=== PATIENT | female | born 1955 | race Caucasian/White ===

== ENCOUNTER 2017-04-12 13:29 | Inpatient (IN) ==
--- NOTE | 2017-04-07 16:32 | Discharge Summary ---
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: Chronic Qualifiers: Encounter type: subsequent encounter Qualified Code(s): T84.038D - Mechanical loosening of other internal prosthetic joint, subsequent encounter; Z96.619 - Presence of unspecified artificial shoulder joint; Z96.619 - Presence of unspecified artificial shoulder joint (3) Seizure disorder Priority: Secondary Status: Chronic (4) HTN (hypertension) Priority: Secondary Status: Chronic Qualifiers: Hypertension type: unspecified Qualified Code(s): I10 - Essential (primary ) hypertension (5) Tobacco dependence Priority: Secondary Status: Chronic (6) GERD (gastroesophageal reflux disease) Priority: Secondary Status: Chronic Qualifiers: Esophagitis presence: esophagitis presence not specified Qualified Code(s) : K21.9 - Gastro-esophageal reflux disease without esophagitis (7) Osteoporosis Priority: Secondary Status: Chronic Qualifiers: Osteoporosis type: unspecified Presence of current pathological fracture: unspecified Qualified Code(s): M81.0 - Age-related osteoporosis without current pathological fracture (8) PVD (peripheral vascular disease) Priority: Secondary Status: Chronic (9) Status post total shoulder replacement Priority: Primary Status: Acute Qualifiers: Laterality: right Qualified Code(s): Z96.611 - Presence of right artificial shoulder joint - Discharge Medications Home Medications: Alendronate Sodium 70 mg PO TH 07/11/16 [History] Gabapentin [Neurontin] 1,200 mg PO HS 07/11/16 [History] Gabapentin [Neurontin] 600 mg PO 0800,1200 07/11/16 [History] Lisinopril [Zestril] 20 mg PO DAILY 07/11/16 [History] Phenytoin ER [Dilantin ER] 200 mg PO BID 07/11/16 [History] Tizanidine HCl 4 mg PO TID PRN 07/11/16 [History] Dicyclomine [Bentyl] 20 mg PO QID PRN 12/27/16 [History] Omeprazole [PriLOSEC] 40 mg PO DAILY 12/27/16 [History] Duloxetine HCl [Cymbalta] 60 mg PO DAILY 04/12/17 [History] OxyCODONE/APAP 5/325 [Percocet 5/325 MG] 1 each PO TID PRN 7 Days #20 tablet 11/19 [Rx] Allergies/Adverse Reactions: 3 Allergy/AdvReac Type Severity Reaction Status Date / Time sulfamethoxazole Allergy Swelling Verified 04/12/17 13:51 [From Bactrim] of Lip/Tongue/Throat trimethoprim [From Bactrim] Allergy Swelling Verified 04/12/17 13:51 of Lip/Tongue/Throat Primary care physician: Nitesh Abbott CNP - Patient Status Disposition: Home Health Service Condition: Good - Discharge Instructions Instructions: Calcium and Osteoporosis (DC), Peripheral Vascular Disorders (DC) , Chronic Hypertension (DC) Follow Up With: Christiana Smith PAC [Physician Keyboard Specialist] - 04/18/17 9:00 am (04/26/17 @ 0815 2nd followup appt) Richy Saleem DO [Partnered Physician] - 05/31/17 9:20 am Jeffy Quiros MD [Partnered Physician] - 05/08/17 5:40 pm Jeanne Thakur PhD [Partnered Physician] - 04/16/17 9:00 am Additional Instructions: Discharge Instructions: Total Shoulder Please call [facility] ([phone]), your Primary Care Physician, or report to the Emergency Room if you have any of the following symptoms: Nausea, vomiting, fever greater that 101.5, swelling, chest pain, shortness of breath, increased pain/redness/drainage/odor for your incision site, numbness/ tingling, or any other concerning symptoms. ACTIVITY: Always keep your arm in the sling. Do not raise your arm away from your body. Do not use your arm to help with getting in or out of bed. No weight bearing permitted. Only perform those exercises given to you by your therapist. MEDICATIONS: Upon discharge resume your home medications. Take all the medications as prescribed. Take a stool softener if taking narcotic pain medications. Stool softeners are only effective if you drink enough fluids. Drink 6-8 glass of water or fluids a day, unless this is not allowed for another health problem. Despite using stool softeners, if you haven't had a bowel movement in 3 days, please switch to a gentle laxative. Gentle laxatives are sold over the counter. You should have a bowel movement within 24 hours, if not call the office. You will be discharged from the hospital with a prescription for pain medication. You are encouraged to decrease the use of narcotic pain medication as tolerated. Should you require a refill, please call the office. [facility] prescribes narcotic pain medication for only 4-6 weeks after surgery. If you require pain medication beyond this time period, you may be referred to your Primary Care Physician or to the Pain Clinic for further evaluation. Plan ahead for refills on pain medication as many narcotics either need to be picked up at the office or mailed. It is best to call 48-72 hours in advance of needing a prescription refill so you don't run out of medication. To help control the post-operative pain, you may take NSAIDs (Aleve,Advil, Motrin, Ibuprofen, Naprosyn) or Tylenol as prescribed on the bottle in addition to the pain medication. WOUND CARE: Leave the dressing on for 7-10 days. You may change the dressing if it becomes saturated greater than 50%. Do not get the dressing wet at anytime. Wash your hands with antibacterial soap, rinse and dry prior to any wound care. If you have domingo the visiting nurse or rehab facility can remove the stapes 10-14 days after surgery and place steri-strips across the wound. Leave the steri-strips in place until they fall off on their own. You may let water from the shower run on top of the steri-strips. If you do not have a visiting nurse or rehab facility, you will need to return to the office at 10-14 days for the domingo to be removed. If you have itching or redness around the dressing call the office. FOLLOW-UP: Please follow up with your surgeon in the orthopedic clinic, as scheduled - Hospital Course Hospital course: Ms. Lilly is a 61 year old female - Time Spent with Patient Total time spent providing and/or coordinating discharge services: <Christiana Smith E - Last Filed: 04/19/17 17:53> Date of Encounter: 04/19/17 Time of Encounter: 17:51 - Discharge Diagnosis (1) Status post total shoulder replacement Priority: Primary Status: Acute Qualifiers: Laterality: right Qualified Code(s): Z96.611 - Presence of right artificial shoulder joint (2) Loosening of shoulder joint prosthesis Priority: Primary Status: Chronic Qualifiers: Encounter type: subsequent encounter Qualified Code(s): T84.038D - Mechanical loosening of other internal prosthetic joint, subsequent encounter; Z96.619 - Presence of unspecified artificial shoulder joint; Z96.619 - Presence of unspecified artificial shoulder joint (3) Seizure disorder Priority: Secondary Status: Chronic (4) HTN (hypertension) Priority: Secondary Status: Chronic Qualifiers: Hypertension type: unspecified Qualified Code(s): I10 - Essential (primary ) hypertension (5) Tobacco dependence Priority: Secondary Status: Chronic (6) GERD (gastroesophageal reflux disease) Priority: Secondary Status: Chronic Qualifiers: Esophagitis presence: esophagitis presence not specified Qualified Code(s) : K21.9 - Gastro-esophageal reflux disease without esophagitis (7) Osteoporosis Priority: Secondary Status: Chronic Qualifiers: Osteoporosis type: unspecified Presence of current pathological fracture: unspecified Qualified Code(s): M81.0 - Age-related osteoporosis without current pathological fracture (8) PVD (peripheral vascular disease) Priority: Secondary Status: Chronic Date of admission: 04/12/17 Primary care physician: Nitesh Abbott CNP Anticipated date of discharge: 04/13/17 (Patient's surgery moved from 04/08 to 04/12) - Patient Status Functional capacity at discharge: independent ambulation Overall status at discharge: patient is progressing back to baseline - Diet and Activity Activity: as per physical therapy Diet: advance to your usual diet - Hospital Course Hospital course: Ms. Lilly is a 61 year old female - Time Spent with Patient Total time spent providing and/or coordinating discharge services: - VTE Documentation of Mechanical Device: Venous foot pump, device
--- NOTE | 2017-04-07 20:37 | Physician Discharge Referral ---
Home Health/Hosp Referral Info Transfer to: Home Health Attending Provider: Dr Jeffy Quiros - Diagnosis (1) Status post total shoulder replacement Priority: Primary Status: Acute (2) Loosening of shoulder joint prosthesis Priority: Primary Status: Chronic (3) Seizure disorder Priority: Secondary Status: Chronic (4) HTN (hypertension) Priority: Secondary Status: Chronic (5) Tobacco dependence Priority: Secondary Status: Chronic (6) GERD (gastroesophageal reflux disease) Priority: Secondary Status: Chronic (7) Osteoporosis Priority: Secondary Status: Chronic (8) PVD (peripheral vascular disease) Priority: Secondary Status: Chronic - Respiratory Orders Smoking Cessation: Smoking cessation has been advised. For more information, call the [place] Tobacco Quit Line at 7-405-ETII-NOW. - Dressing/Wound Care Site: right shoulder Type of Dressing/Treatments w/Frequency: Opsite placed. Keep dressing intact until first follow up appointment. If > 50% saturated, notify office, remove dressing and place appropriate dressing back in place. Leave Delmi and Zipline intact. Opsite dressing is water resistant, not water-proof. OK to shower, but do not get dressing wet. - Diet/Nutrition Diet/Nutrition Orders: Regular - Activity Activity Orders: Up ad kosta, Ambulate, Chair Activity: List: PT/OT. NWB to affected upper extremity. Follow Shoulder Precautions x 6 weeks. Stay in brace during activity and at night. Remove brace during exercises. ICE and elevate extremity frequently throughout the day. - Services Needed Following services are medically necessary services: Nursing, Home Health Aide, Physical Therapy, Occupational Therapy - Transfer Medications Prescriptions: OxyCODONE Immed Rel [Roxicodone 5 MG] 5 mg PO BID PRN 7 Days #14 tablet PRN Reason: Breakthrough Pain Home Medications: Alendronate Sodium 70 mg PO TH 07/11/16 [History] Gabapentin [Neurontin] 1,200 mg PO HS 07/11/16 [History] Gabapentin [Neurontin] 600 mg PO 0800,1200 07/11/16 [History] Lisinopril [Zestril] 20 mg PO DAILY 07/11/16 [History] OxyCODONE/APAP 5/325 [Percocet 5/325 MG] 1 each PO TID PRN 07/11/16 [History] Phenytoin ER [Dilantin ER] 200 mg PO BID 07/11/16 [History] Tizanidine HCl 4 mg PO TID PRN 07/11/16 [History] Dicyclomine [Bentyl] 20 mg PO QID PRN 12/27/16 [History] Omeprazole [PriLOSEC] 40 mg PO DAILY 12/27/16 [History] OxyCODONE/APAP 10325 [Percocet 10/325 MG] 1 each PO Q6HR PRN #24 tablet [Rx] Oxybutynin Chloride [Ditropan Xl] 10 mg PO DAILY 12/27/16 [History] OxyCODONE Immed Rel [Roxicodone 5 MG] 5 mg PO BID PRN 7 Days #14 tablet [Rx] Allergies/Adverse Reactions: 3 Allergy/AdvReac Type Severity Reaction Status Date / Time sulfamethoxazole Allergy Swelling Verified 12/27/16 11:09 [From Bactrim] of Lip/Tongue/Throat trimethoprim [From Bactrim] Allergy Swelling Verified 12/27/16 11:09 of Lip/Tongue/Throat Certification: Further, I certify that my clinical findings support that this patient is homebound (i.e. absences from home require considerable and taxing effort and are for medical reasons or episcopalian services or infrequently or short duration when for other reasons) because: Homebound Reason: Post-surgery restriction and or conditions limit ability to leave home Attestation: My signature below is to certify that this patient is under my care and that I, or nurse practitioner, or a physician medical staff assistant working with me, has a face-to- face encounter with this patient.
[~2017-04-12 13:29] MED LIST: *HR* Enoxaparin 30 MG/0.3 ML SYRINGE SQ SCH
[2017-04-12] MEDS ORDERED: Famotidine 20 MG/2 ML VIAL IVP ONE (13:49)
[2017-04-12] MEDS ORDERED: Pregabalin 75 MG CAPSULE PO ONE (13:49)
[2017-04-12] MEDS ORDERED: Albuterol 2.5 MG/3 ML NEBULIZER IH ONE (13:54)
[2017-04-12] MEDS ORDERED: CeFAZolin Syr 2,000MG/20 ML 2,000 MG/20 ML SYRINGE IVPB ONE (13:54)
[2017-04-12] MEDS ORDERED: Ringers Solution, Lactated 1,000 ML IVC SCH ×2 (14:00→17:31)
--- NOTE | 2017-04-12 14:24 | History & Physical Report ---
Date of Encounter: 04/12/17 Time of Encounter: 14:24 24 Hour HP Update - Instructions Instructions: If the History and Physical is less than 30 days old and was completed prior to A.M. admission and or procedure and has NOT been updated on calendar day of procedure please complete this update prior to performing procedure. - Update Patient reports changes in Medical Condition: No Changes in examination, assessment, or condition: No Changes in Medication: No Preop tests/diagnostics Reviewed: Yes Surgery Remains Indicated: Yes Consent for Planned Operative Procedure(s) Verified: Yes - Pre-Operative Checklist Preoperative Checklist Indicated: No Prophylactic Antibiotic Ordered: Yes Is VTE Prophylaxis Indicated?: Yes
--- NOTE | 2017-04-12 14:24 | Anesthesia Evaluation PreOp ---
Date of Encounter: 04/12/17 Time of Encounter: 14:22 - Past History Planned Operation: R-Reverse Total Shoulder Cardiac History: HTN (maintained on Lisinopril), Other (PVDz) Pulmonary History: Smoker (1ppd x 40yrs) [employer] History: Seizures (2011 - maintained on Dilantin,), Other (Chronic Pain maintained on Methocarbamol, Percocet, Neurontin. Anxiety/Depression maintained on Cymbalta. L1-L5/S1 facet arthropathy) Other Medical History: GERD (maintained on Omeprazole) Anesthesia History: No Prior Anesthetic Complications, Past Anesthesia (R-Total shoulder reverse 05/2013, Kyphoplasty, [place]) Alcohol Use: none Drug use: none Medications and Allergies Alendronate Sodium 70 mg PO TH 07/11/16 [History] Gabapentin [Neurontin] 1,200 mg PO HS 07/11/16 [History] Gabapentin [Neurontin] 600 mg PO 0800,1200 07/11/16 [History] Lisinopril [Zestril] 20 mg PO DAILY 07/11/16 [History] OxyCODONE/APAP 5/325 [Percocet 5/325 MG] 1 each PO TID PRN 07/11/16 [History] Phenytoin ER [Dilantin ER] 200 mg PO BID 07/11/16 [History] Tizanidine HCl 4 mg PO TID PRN 07/11/16 [History] Dicyclomine [Bentyl] 20 mg PO QID PRN 12/27/16 [History] Omeprazole [PriLOSEC] 40 mg PO DAILY 12/27/16 [History] OxyCODONE Immed Rel [Roxicodone 5 MG] 5 mg PO BID PRN 7 Days #14 tablet [Rx] Duloxetine HCl [Cymbalta] 60 mg PO DAILY 04/12/17 [History] 3 Allergy/AdvReac Type Severity Reaction Status Date / Time sulfamethoxazole Allergy Swelling Verified 04/12/17 13:51 [From Bactrim] of Lip/Tongue/Throat trimethoprim [From Bactrim] Allergy Swelling Verified 04/12/17 13:51 of Lip/Tongue/Throat - Meds/Allergy Pre-op Review Medications Reviewed: Yes Allergies Reviewed: Yes Beta Blockers on Current Med List: No Anesthesia Results - Imaging EKG: image reviewed (70bpm SR,) Anesthesia Exam O2 Sat Height 1.52 m Height 1.52 m Height 1.52 m Weight 55.338 kg Weight 55.338 kg Weight 55.338 kg O2 Sat by Pulse Oximetry 95 Vital Signs Temp Pulse Resp BP Pulse Ox 98.1 F 87 18 154/95 95 04/12/17 13:51 04/12/17 13:51 04/12/17 13:51 04/12/17 13:51 04/12/17 13:51 Height: 5' Weight: 122# BMI = 24 - HEENT Pupil (Motor): Pupils equal, EOMI - [employer] LOC: Oriented [employer] Motor: Normal LUE, Normal RLE, Normal LLE, Normal Face, Deficit RUE [employer] Sensory: Normal: LUE, RLE, LLE, Face, Deficit: RUE - Cardiac Rhythm: Regular Murmur: None - Pulmonary Breath Sounds: bilateral Clear Respiratory Effort: Symmetrical Anesthesia Assess/Plan ASA Score: 3 Modified Jeanne Scale for Level of Consciousness: Cooperative, oriented, and tranquil Anesthetic Plan: General, Regional Monitoring Plan: Standard Monitors Recovery Plan: PACU Anes Supervising Prov Stmt: Pt seen/evaluated, R&B Discussed, questions answered and consent obtained. Saud Acuna MD
[2017-04-12] MEDS ORDERED: Dexamethasone 4 MG/ML VIAL ONE (14:51)
[2017-04-12] MEDS ORDERED: *HR* Succinylcholine 200 MG/10 ML VIAL IVP ONE (14:51)
[2017-04-12] MEDS ORDERED: Ondansetron 4 MG/2 ML VIAL ONE (14:51)
[2017-04-12] MEDS ORDERED: *HR* Propofol 200 MG/20 ML VIAL IVP ONE (14:51)
[2017-04-12] MEDS ORDERED: Lidocaine -MPF 2% 2 ML VIAL ONE (14:51)
[2017-04-12] MEDS ORDERED: *HR* FentaNYL (PF) 100 MCG/2 ML VIAL ONE (14:59)
[2017-04-12] MEDS ORDERED: *HR* Midazolam HCl 2 MG/2 ML VIAL ONE (14:59)
[2017-04-12] MEDS ORDERED: *HR* Ropivacaine/PF 0.5% 20 ML VIAL ONE (15:00)
[2017-04-12] MEDS ORDERED: Tetracaine/PF 20 MG/2 ML AMPUL ONE (15:01)
[2017-04-12] MEDS ORDERED: Ethanol\\Acetic Acid\\Na Ace\\Ben 1,000 ML IRRIG.SOLN IR ONE (15:05)
--- NOTE | 2017-04-12 15:15 | Anesthesia Procedures ---
Date of Encounter: 04/12/17 Time of Encounter: 15:00 Procedures: Anesthesia - Nerve Block Procedure Date: 04/12/17 Time: 15:00 Pre-op Diagnosis: Rt Shoulder Arthropathy Surgical Procedure: Rt Total Shoulder Replacement Checklist: Correct Patient Identifier Correct side: Right Blood Thinner: No Monitor Applied: EKG, BP, Pulse Oximetry Supplemental Oxygen via Nasal Cannula (L/min): 2 Sedation: Versed (mg): 1 Sedation: Fentanyl (mcg): 50 Indication: Post Op Analgesia Pre-op Neuro Deficits: No Block Type: Supraclavicular, Other (SCPB) Catheter placed: No Depth at skin (cm): 2 Sterile Technique: Yes Ultrasound used: Yes Anatomy identified: Yes Visual spread of Local: Yes Neuro Stimulation: No Blood on Needle Aspiration: No Smooth Injection of Local: Yes Pain with Injection of Local: No Prep: Chlorhexadine Needle: 22 x 50 mm Stimuplex Local: Tetracaine (20mg), Ropivacaine (0.5%) Volume (cc): 40 Number of Attempts: 1 Complications: None/effective block Vitals: 40 Vital Signs/O2 Sat/Glucose, Most Current Temp Pulse Resp BP Pulse Ox 04/12/17 15:00 79 16 144/79 95 04/12/17 13:51 98.1 F 87 18 154/95 95
[2017-04-12] MEDS ORDERED: *HR* PHENYLEPHRINE 1,000 MCG/10 ML SYRINGE IVP ONE (15:30)
[2017-04-12] MEDS ORDERED: Ondansetron 4 MG/2 ML VIAL IVP ONE (15:34)
[2017-04-12] MEDS ORDERED: *HR* Promethazine 25 MG/ML VIAL IVP PRN (15:34)
[2017-04-12] MEDS ORDERED: MORPHINE SUL Oral CONC 10 MG/0.5 ML ORAL.SYG SL PRN (15:34)
[2017-04-12] MEDS ORDERED: *HR* HYDROmorphone 2 MG TABLET PO PRN (15:34)
--- NOTE | 2017-04-12 16:32 | Orthopedic Operative Note ---
Date of procedure: 04/12/17 Pre-op diagnosis: Aseptic loosening right humeral component Total shoulder reverse Post-op diagnosis: same Procedure: Procedure: Total Shoulder Replacment Reverse, right revision humeral component Estimated blood loss: 100 cc Hardware: Metal and polyethylene replacement: 6 humeral stem, poly insert 6 constrained and 12 metal spacer Exam Under anesthesia: Full motion well-healed incision stability and no sign of infection Procedural Notes: Loose humeral component Operative procedure: The patient was brought to the operating room and placed on the operating room table. After general anesthesia was administered the operative shoulder was examined. Findings were noted. The patient was placed in the modified beachchair position. All pressure points were padded appropriately. And the head was stabilized in the neutral position. The operative extremity was prepped and draped in the sterile surgical fashion. The patient received IV antibiotics prior to skin incision. A standard deltopectoral approach was made to the operative shoulder through the old incision. Incision was made to the skin and subcutaneous tissue,hemo stasis was obtained with Bovie cautery. Using careful blunt dissection the deltopectoral interval was developed extensive scar tissue was removed. Cultures were obtained as well as Gram stain. No evidence of infection was seen. The humeral component was dislocated. The humeral component was removed by hand. Grossly loose. The humerus had a pedestal due to the patient's osteoporosis a decision was made to cement in the same sized. The humeral stem was cemented in 20 degrees of retroversion. After the cement had hardened trial reduction revealed excellent motion and stability with a +12 metal spacer and a 6 constrained posterior spacer. Trial components were removed and the real components were seated and secure. The shoulder had excellent motion and excellent stability and no evidence of dislocation. The deep tissue was irrigated with pulse irrigation. The deltopectoral interval was closed with a running #1 PDS suture, subcutaneous tissue was irrigated and closed with 0 PDS suture, the skin was closed with skin domingo. The patient was placed in a sterile dressing, abduction brace and extubated. The patient was then transferred to the recovery room in stable condition. Anesthesia: GETA Surgeon: Jeffy Quiros Was there an assistant toddler teacher present: No Estimated blood loss (cc): 100 Condition: stable Disposition: PACU
--- NOTE | 2017-04-12 17:19 | Anesthesia Evaluation Post Op ---
Date of Encounter: 04/12/17 Time of Encounter: 17:18 - Vital Signs Vital Signs: Vital Signs/O2 Sat, Most Current Temp Pulse Resp BP Pulse Ox 98.1 F 92 20 165/94 92 04/12/17 17:06 04/12/17 17:06 04/12/17 17:06 04/12/17 17:06 04/12/17 17:06 - Lungs Lungs: Clear Ascult./Percussion - Airway Airway: Non-obstructed - Cardiovascular Regular Rate - Mental Status Mental Status: Alert & Oriented, Answers Appropriately - Pain Pain Scale: 0 Pain Scale used: Numeric (1 - 10) - Nausea Vomiting Nausea Vomiting: Not Present - Hydration Hydration: Tolerates oral liquids, Able to void Notes: 04/12/17 17:18 pt resting comfortably without complaints - Discharge PostOp Status: Transfer Patient to floor
[2017-04-12] MEDS ORDERED: *HR* OxyCODONE Immed Rel 5 MG TABLET PO PRN (17:31)
[2017-04-12] MEDS ORDERED: MOM Conc 10 ML UD.LIQ PO PRN (17:31)
[2017-04-12] MEDS ORDERED: Ondansetron 4 MG/2 ML VIAL IVP PRN (17:31)
[2017-04-12] MEDS ORDERED: Naloxone 0.4 MG/ML INJ IVP PRN (17:31)
[2017-04-12] MEDS ORDERED: Temazepam 15 MG CAPSULE PO PRN (17:31)
[2017-04-12] MEDS ORDERED: Sennosides 8.6 MG TABLET PO PRN (17:31)
[2017-04-12] MEDS ORDERED: tiZANidine 4 MG TABLET PO PRN (17:31)
[2017-04-12] MEDS ORDERED: CeFAZolin Premix DUPLEX 2,000 MG/50 ML BAG IVPB SCH (17:31)
[2017-04-12] MEDS ORDERED: *HR* Enoxaparin 30 MG/0.3 ML SYRINGE SQ SCH (18:00)
[2017-04-12] MEDS: *HR* Enoxaparin 30 MG/0.3 ML SYRINGE SQ SCH (18:41)
[2017-04-12 19:18] LABS: Hematocrit 36.3 % (35.3-44.9)
[2017-04-12 19:20] LABS: Hemoglobin 11.4 g/dL (11.5-15.4)
[2017-04-12] MEDS ORDERED: Gabapentin 400 MG CAPSULE PO SCH (21:00)
[2017-04-12] MEDS: CeFAZolin Premix DUPLEX 2,000 MG/50 ML BAG IVPB SCH (22:54)
[2017-04-13] MEDS: *HR* OxyCODONE Immed Rel 5 MG TABLET PO PRN ×3 (00:20→08:56)
[2017-04-13 04:06] LABS: Hematocrit 30.6 % (35.3-44.9); Hemoglobin 9.9 g/dL (11.5-15.4)
[2017-04-13] MEDS: CeFAZolin Premix DUPLEX 2,000 MG/50 ML BAG IVPB SCH (06:48)
[2017-04-13] MEDS: *HR* Enoxaparin 30 MG/0.3 ML SYRINGE SQ SCH (06:48)
[2017-04-13] MEDS ORDERED: Gabapentin 300 MG CAPSULE PO SCH (08:00)
--- NOTE | 2017-04-13 08:52 | Orthopedics Progress Note ---
Date of Encounter: 04/13/17 Time of Encounter: 08:50 Subjective Interval history: S: Sitting up in bed comfortably. Expected postoperative pain which is controlled No new complaints. O: AFVSS Right shoulder dressing is clean, dry, intact NV intact distally to the right hand. A: Post right revision total shoulder P: Resume postoperative care Anticipate discharge today. Objective Vital signs: Vital Signs Temp Pulse Resp BP Pulse Ox 04/13/17 06:32 98.7 F 79 16 150/90 94 04/13/17 04:15 98.1 F 65 16 177/93 95 04/13/17 00:45 97.9 F 68 14 130/84 95 04/12/17 20:46 98.2 F 75 15 136/82 95 04/12/17 19:53 98.6 F 77 15 154/84 98 04/12/17 18:44 97.1 F L 82 16 155/90 98 04/12/17 18:18 97.6 F 89 16 156/94 98 04/12/17 17:40 98.0 F 79 16 156/91 93 04/12/17 17:06 98.1 F 92 20 165/94 92 04/12/17 16:56 96 18 167/98 96 04/12/17 16:46 98 18 161/95 96 04/12/17 16:37 98.1 F 104 16 159/86 92 04/12/17 15:00 79 16 144/79 95 04/12/17 13:51 98.1 F 87 18 154/95 95 Intake and Output 04/12/17 04/13/17 04/13/17 23:59 07:59 15:59 Intake Total 0 / 0 390 / 390 Output Total 100 / 100 Balance -100 / -100 390 / 390 Intake: IV Fluids 50 / 50 Ancef Premix DUPLEX 2,000 mg In 50 / 50 50 ml @ 100 mls/hr IVPB Q8H MAUREEN Rx#:[id number] Oral 0 / 0 340 / 340 Output: Estimated Blood Loss 100 / 100 Other: # Voids 1 1 - Labs CBC & BMP: 04/13/17 03:59 Labs: Abnormal lab results Hgb 9.9 g/dL (11.5-15.4) L D 04/13/17 03:59 Hct 30.6 % (35.3-44.9) L 04/13/17 03:59 - VTE Documentation of Mechanical Device: Venous foot pump, device Consult Discharge Plan - Plan Additional Instructions: Discharge Instructions: Total Shoulder Please call [facility] ([phone]), your Primary Care Physician, or report to the Emergency Room if you have any of the following symptoms: Nausea, vomiting, fever greater that 101.5, swelling, chest pain, shortness of breath, increased pain/redness/drainage/odor for your incision site, numbness/ tingling, or any other concerning symptoms. ACTIVITY: Always keep your arm in the sling. Do not raise your arm away from your body. Do not use your arm to help with getting in or out of bed. No weight bearing permitted. Only perform those exercises given to you by your therapist. MEDICATIONS: Upon discharge resume your home medications. Take all the medications as prescribed. Take a stool softener if taking narcotic pain medications. Stool softeners are only effective if you drink enough fluids. Drink 6-8 glass of water or fluids a day, unless this is not allowed for another health problem. Despite using stool softeners, if you haven't had a bowel movement in 3 days, please switch to a gentle laxative. Gentle laxatives are sold over the counter. You should have a bowel movement within 24 hours, if not call the office. You will be discharged from the hospital with a prescription for pain medication. You are encouraged to decrease the use of narcotic pain medication as tolerated. Should you require a refill, please call the office. [facility] prescribes narcotic pain medication for only 4-6 weeks after surgery. If you require pain medication beyond this time period, you may be referred to your Primary Care Physician or to the Pain Clinic for further evaluation. Plan ahead for refills on pain medication as many narcotics either need to be picked up at the office or mailed. It is best to call 48-72 hours in advance of needing a prescription refill so you don't run out of medication. To help control the post-operative pain, you may take NSAIDs (Aleve,Advil, Motrin, Ibuprofen, Naprosyn) or Tylenol as prescribed on the bottle in addition to the pain medication. WOUND CARE: Leave the dressing on for 7-10 days. You may change the dressing if it becomes saturated greater than 50%. Do not get the dressing wet at anytime. Wash your hands with antibacterial soap, rinse and dry prior to any wound care. If you have domingo the visiting nurse or rehab facility can remove the stapes 10-14 days after surgery and place steri-strips across the wound. Leave the steri-strips in place until they fall off on their own. You may let water from the shower run on top of the steri-strips. If you do not have a visiting nurse or rehab facility, you will need to return to the office at 10-14 days for the domingo to be removed. If you have itching or redness around the dressing call the office. FOLLOW-UP: Please follow up with your surgeon in the orthopedic clinic, as scheduled Referrals: Christiana Smith PAC [Physician Firearms Instructor] - 04/18/17 9:00 am (04/26/17 @ 0815 2nd followup appt) Richy Saleem DO [Partnered Physician] - 05/31/17 9:20 am Jeffy Quiros MD [Partnered Physician] - 05/08/17 5:40 pm Jeanne Thakur, PhD [Partnered Physician] - 04/16/17 9:00 am
[2017-04-13] MEDS ORDERED: Lisinopril 20 MG TABLET PO SCH (09:00)
[2017-04-13 10:53] VITALS: BP 172/88
[2017-04-18] MEDS ORDERED: NON-FORMULARY MEDICATION 1 EACH EACH (Alendronate Sodium [Alendronate Sodium] 70 MG) PO SCH (14:26)
== END 2017-04-13 12:10 | disposition home health service (06) | DRG 483 ==
LOC: SAMDAY 13:29 → 3NENU 18:15
PROVIDERS: ADMIT Orthopaedic Surgery; ATTEND Orthopaedic Surgery

== ENCOUNTER 2018-10-04 01:03 | Inpatient (IN) ==
[~2018-10-04 01:03] MED LIST changes: -*HR* Enoxaparin 30 MG/0.3 ML SYRINGE SQ SCH; +Acetaminophen 325 MG TABLET PO PRN; +Naloxone 0.4 MG/ML INJ IVP PRN; +Ondansetron 4 MG/2 ML VIAL IVP PRN; +Perflutren Lipid Microsphere 1.3 ML in 0.9 % Sodium Chloride 8.7 ML IVP ONE; +Potassium Chloride Elixir 20 MEQ/15 ML UDC PO ONE
[2018-10-04 01:37] LABS: Hematocrit 30.3 % (35.3-44.9); Hemoglobin 10.2 g/dL (11.5-15.4); Mean Corpuscular HGB Conc 33.7 g/dL (31.6-35.5); Mean Corpuscular Hemoglobin 31.9 pg (28.0-33.3); Mean Corpuscular Volume 94.7 fL (83.0-100.0); Mean Platelet Volume 9.1 fL (9.4-12.4); Platelet Count 259 K/mcL (140-400); Red Cell Distribution Width 13.8 % (11.5-14.5); White Blood Count 7.1 K/mcL (4.3-11.1)
[2018-10-04] MEDS: 0.9 % Sodium Chloride 1,000 ML IVC SCH (01:39)
[2018-10-04] MEDS: *HR* OxyCODONE Immed Rel 5 MG TABLET PO PRN ×6 (01:40→20:53)
[2018-10-04] MEDS: Nicotine 14 MG PATCH.TD24 TD SCH (01:40)
[2018-10-04 01:51] LABS: BUN/Creatinine Ratio 15 (6-26); Blood Urea Nitrogen 5 mg/dL (8-23); Calcium 8.4 mg/dL (8.6-10.3); Carbon Dioxide 30 mEq/L (23-29); Chloride 101 mEq/L (98-107); Chol/HDL Ratio 2.8 (0-4.9); Cholesterol 152 mg/dL (< 200); Glucose 126 mg/dL (70-105); HDL Cholesterol 54 mg/dL (40-59); LDL Cholesterol,Calculated 86 mg/dL (0-99); Magnesium 1.7 mg/dL (1.6-2.6); Osmolality,Calculated 281 (280-300); Sodium 136 mEq/L (136-145); Triglycerides 58 mg/dL (< 150); eGFR For African Americans > 60 (> 60); eGFR For Non-African Americans > 60 (> 60)
--- NOTE | 2018-10-04 01:52 | Internal Med History&Physical ---
Date of Encounter: 10/04/18 Time of Encounter: 00:00 Internal Medicine - H&P: HPI Chief complaint: Left hip pain Admitted From: Intrahospital Transfer Plans for Post Hospital Care: Home History of present illness: Ms. Lilly is a 63 year old female w/PMH of recent cervical cancer, GERD, HTN, seizures, and depression presents from [facility] w/cc of left hip pain d/t fall yesterday. Patient reports she was outdoors in her yard walking backwards w/her granddaughter when she fell on her left hip. Patient denies dizziness, LOC, or striking head. Patient denies hx of chronic falls. No aggravating factors; Alleviating factor for pain: rest. Patient denies extensive cardiac history or recent cardiac workup, recent illness, fever, chills, nausea, vomiting, headache, changes in vision, unusual bleeding, chest pain, shortness of breath, cough, chest congestion, abdominal pain, diarrhea, constipation, dizziness, lightheadedness, numbness, tingling, pre-syncope, or syncope. Past Med Surg Social Fam HX - Past Medical History Source: patient, old records reviewed Medical history: cancer (Cervical), GERD, hypertension, seizures Additional medical history: anemia Psychiatric history: depression - Past Surgical History Surgical History: cholecystectomy Additional surgical history: rt shoulder replacement. port to right chest - Social History Smoking Status: Current every day smoker Packs per day: 1 PPD Smokeless Tobacco Status: No Alcohol use: none Drug use: none Current living situation: Home, With Family Activity Level: Independent ambulation Recent Out of Country Travel Within the Last 8 Weeks: No Exposure or Possible Exposure to Illness During Travel: No - Family History Father Race: Family Member Ethnicity: Non- Living Status: Still Living Hx Family Cardiac Disorders: Yes (CAD, Pacemaker) Hx Family Endocrine Disorder: Yes (DM) Mother Race: Family Member Ethnicity: Non- Living Status: Age at : 76 Cause of : COPD Hx Family Respiratory Disorders: Yes (COPD) Brother Race: Family Member Ethnicity: Non- Living Status: Age at : 48 Cause of : Brain tumor Hx Family Cancer: Yes (Brain tumor) Sister Race: Family Member Ethnicity: Non- Hx Family Medical Disorders: No Internal Medicine - H&P: Meds Gabapentin [Neurontin] 600 mg PO 0800 07/11/16 [History] Gabapentin [Neurontin] 600 mg PO HS 07/11/16 [History] Lisinopril [Zestril] 20 mg PO DAILY 07/11/16 [History] Phenytoin ER [Dilantin ER] 100 mg PO BID 07/11/16 [History] Tizanidine HCl 4 mg PO TID PRN 07/11/16 [History] Dicyclomine [Bentyl] 20 mg PO QID PRN 12/27/16 [History] Omeprazole [PriLOSEC] 40 mg PO DAILY 12/27/16 [History] Duloxetine HCl [Cymbalta] 60 mg PO DAILY 04/12/17 [History] Folic Acid 1 mg PO DAILY #30 tablet 06/02/18 [Rx] Oxybutynin Chloride [Ditropan XL] 15 mg PO BID 30 Days #60 tab 09/03/18 [Rx] Gabapentin [Neurontin] 800 mg PO 1200 10/03/18 [History] Oxycodone HCl [Oxaydo] 7.5 mg PO Q6H PRN 10/03/18 [History] Tiotropium Br/Olodaterol HCl [Stiolto Respimat Inhal [place]] 4 gm IH QAM 10/03/18 [History] Allergy/AdvReac Type Severity Reaction Status Date / Time sulfamethoxazole Allergy Swelling Verified 10/03/18 14:48 [From Bactrim] of Lip/Tongue/Throat trimethoprim [From Bactrim] Allergy Swelling Verified 10/03/18 14:48 of Lip/Tongue/Throat All Systems PM: A 10-system review of systems was performed and is negative for pertinent findings except as documented above in the HPI. - Constitutional Constitutional: no chills, no fever(s), no night sweats - EENT Eyes: no change in vision, no discharge, no pain, no photophobia Ears: no ear discharge, no ear pain, no tinnitus Nose, mouth and throat: no dysphagia, no nasal discharge, no neck pain, no sore throat - Breasts Breasts: as per HPI - Cardiovascular Cardiovascular ROS IM: no chest pain, no diaphoresis, no dyspnea, no lig htheadedness, no palpitations, no syncope - Respiratory Respiratory: no cough, no dyspnea, no wheezing, no excessive phlegm production - Gastrointestinal Gastrointestinal: no abdominal pain, no diarrhea, no hematemesis, no hematochezia, no melena, no nausea, no vomiting - Genitourinary Genitourinary: no change in urinary stream, no dysuria, no flank pain, no hematuria Menstruation: as per HPI - Musculoskeletal Musculoskeletal ROS IM: no numbness, no tingling - Integumentary Integumentary IM: no rash, no unusual bruising - Neurological Neurological ROS: no confusion, no convulsions, no focal weakness, no numbness, no tingling, no tremor(s) - Psychiatric Psychiatric: as per HPI, depression - Endocrine Endocrine IM: as per HPI - Hematologic/Lymphatic Hematologic/Lymphatic: no easy bruising - Allergic/Immunologic Allergic/Immunologic: as per HPI - Constitutional Vitals: Temp Pulse Resp BP Pulse Ox 99.0 F 81 18 138/78 93 10/03/18 23:37 10/03/18 23:37 10/03/18 23:37 10/03/18 23:37 10/03/18 23:37 General appearance: Present: cooperative, mild distress, A&O X 3, pleasant, underweight, answers questions appropriately Exam: Patient examined at bedside. Patient reporting mild pain w/movement. Patient denies any other sx or complaints on examination. VS: 99.0F temp, HR 81, RR 18, BP 138/78, SPO2 93% on room air. - Head Head exam: Present: atraumatic, normocephalic - Eye Eye exam: Present: PERRL, conjuntiva pink, sclera anicteric Pupils: Present: PERRL - ENT ENT exam: Present: normal exam - Neck Neck exam general surgery: Present: normal inspection, supple, trachea midline. Absent: lymphadenopathy - Respiratory Respiratory exam: Present: CTAB. Absent: accessory muscle use, rales, rhonchi, wheezes - Cardiovascular Cardiovascular exam: Present: RRR, +S1, +S2. Absent: diastolic murmur, gallop, rubs, systolic murmur - GI/Abdominal GI/Abdominal exam: Present: normal bowel sounds, soft, no peritoneal signs. Absent: distended, tenderness - Rectal Rectal exam: Present: deferred - Additional comments: exam deferred. - Extremities Exam Extremities exam: Present: warm, radial pulses palpable and symmetrical. Absent: calf tenderness, cyanotic, pedal edema - Back Exam Back exam: Present: normal inspection - Neurological Exam Neurological exam: Present: alert, CN II-XII intact, oriented X3, no focal deficits. Absent: pronater drift, facial droop, speech deficit - Psychiatric Psychiatric exam: Present: normal affect, normal mood - Skin Skin exam: Present: dry, intact Internal Med - H&P Results - Labs CBC & Chem 7: 10/04/18 01:04 10/04/18 01:04 Labs: BMP 10/04/18 01:04 Potassium 4.0 - ABG Interpretation Interpretation: normal - EKG Data EKG shows normal: sinus rhythm - EKG Data Prior EKG available for review: no EKG comments: 10/04/18 03:23 EKG dated 10/04/18 shows normal sinus rhythm. - Impressions ITS Impressions Chest X-Ray 10/03/18 21:42 IMPRESSION: Stable portable study. D/ / Sandra Rhodes Cha, MD / Sandra Rhodes Cha, MD Interpreting Provider: Sandra Rhodes Cha, MD - Diagnostic Studies Chest x-ray Additional comments: Impressions Chest X-Ray 10/03/18 21:42 IMPRESSION: Stable portable study. D/ / Sandra Rhodes Cha, MD / Sandra Rhodes Cha, MD Interpreting Provider: Sandra Rhodes Cha, MD Other Images Additional comments: Impressions EXAMINATION: 2 XRAY VIEWS OF THE LEFT HIP 10/03/2018 3:24 pm COMPARISON: Correlation is made to CT of the abdomen and pelvis dated March 28, 2018 HISTORY: ORDERING SYSTEM PROVIDED HISTORY: Fall with injury Acute left hip pain. FINDINGS: Pelvis: Symphysis pubis interval is normal. Sacroiliac joints are unremarkable. Sacral arcuate lines are uninterrupted. Femoral heads align normally with the acetabula. Osseous pelvis is intact. Left hip: Left subcapital femoral neck fracture with cephalad migration of the femoral diaphysis. Femoral head remains aligned with the acetabulum. XR/XR hip complete LT IMPRESSION: 1. Left subcapital femoral neck fracture with cephalad migration of the femoral diaphysis. D/ / Lambert Purdy MD / Lambert Purdy MD Interpreting Provider: Lambert Purdy MD - Assessment and Plan (1) Closed left femoral fracture Current Visit: Yes Status: Acute Assessment and plan: Acute closed fracture of unspecified part of the neck of left femur. Patient reports she was outdoors in her yard walking backwards w/her granddaughter when she fell on her left hip. Patient denies dizziness, LOC, or striking head. Patient denies hx of chronic falls. No aggravating factors; Alleviating factor for pain: rest. Patient denies extensive cardiac history or recent cardiac workup. CXR shows remote upper left posterior rib fractures noted. Left clavicular fracture is also suspected. There is evidence of prior augmentation of thoracic and lumbar compression fractures. Heart size is normal. Lungs are clear. EKG shows normal sinus rhythm. Echocardiogram ordered. Ortho consult ordered and discussed w/Dr. Tapia by [facility]. Stair-step pain medications for pain mgmt. Cardiac monitoring. Supplemental O2 w/titration and SpO2 monitoring. NPO. Patient is high risk for further morbidity and complications based on current left femur fx, hx of cancer, imaging showing previous fxs; and risk factors of seizures, HTN, and current tobacco abuse. Inpatient. Qualifiers: Encounter type: initial encounter Femur location: unspecified portion of femur Fracture morphology: unspecified fracture morphology Qualified Code(s ): S72.92XA - Unspecified fracture of left femur, initial encounter for closed fracture (2) Cervical cancer Current Visit: Yes Status: Acute Assessment and plan: Acute cervical cancer. Patient reports finishing txs. F/u as needed per Oncology. Qualifiers: Malignant neoplasm of cervix location: unspecified location Qualified Code(s): C53.9 - Malignant neoplasm of cervix uteri, unspecified (3) HTN (hypertension) Current Visit: Yes Status: Chronic Assessment and plan: Hx of chronic HTN. Monitor pt. and VS. Continue patient's lisinopril. Qualifiers: Hypertension type: essential hypertension Qualified Code(s): I10 - Essential (primary) hypertension (4) GERD (gastroesophageal reflux disease) Current Visit: Yes Status: Chronic Assessment and plan: Hx of chronic GERD. Continue pts. Prilosec. Qualifiers: Esophagitis presence: esophagitis presence not specified Qualified Code(s): K21.9 - Gastro-esophageal reflux disease without esophagitis (5) Seizure disorder Current Visit: Yes Status: Chronic Assessment and plan: Hx of seizure disorder. Patient reports she has not had a seizure since 2013. Will continue pts. Dilantin. Monitor. (6) Tobacco dependence Current Visit: Yes Status: Chronic Assessment and plan: Hx of chronic tobacco dependence. Pt. reports she smokes 1 PPD. 14 mg nicotine patch ordered. (7) Tobacco abuse counseling Current Visit: Yes Status: Acute Assessment and plan: Patient counseled >10 minutes regarding smoking cessation and benefits. Will try 14 mg nicotine patch. (8) DVT prophylaxis Current Visit: Yes Status: Acute Assessment and plan: Bilateral SCDs on LEs for DVT prophylaxis. - Time Spent With Patient Total time spent is greater than 50% in coordination of care (as documented) at patient's floor/unit and/or counseling patient: Greater than 35 minutes
[2018-10-04] MEDS: traMADol 50 MG TABLET PO PRN ×2 (03:28→09:12)
[2018-10-04] MEDS ORDERED: NON-FORMULARY MEDICATION 1 EACH EACH (Gabapentin [Neurontin] 600 MG) PO SCH (08:00)
[2018-10-04] MEDS: Gabapentin 300 MG CAPSULE PO SCH ×2 (09:07→20:55)
[2018-10-04] MEDS: Lisinopril 20 MG TABLET PO SCH (09:08)
[2018-10-04] MEDS: tiZANidine 4 MG TABLET PO PRN ×2 (09:19→17:46)
[2018-10-04] MEDS ORDERED: Gabapentin 400 MG CAPSULE PO SCH (12:00)
--- NOTE | 2018-10-04 14:54 | Internal Med Progress Note ---
Hospitalist Progress Note - Encounter Date of Encounter: 10/04/18 Time of Encounter: 14:52 - Subjective Interval History: Still having pain in her hip. Ortho has not seen patient yet. - Exam Vitals: Temp Pulse Resp BP Pulse Ox 98.8 F 91 15 150/91 96 10/04/18 10:46 10/04/18 10:46 10/04/18 10:46 10/04/18 10:46 10/04/18 10:46 Exam: General: Ill-appearing and in no acute distress HEENT: No erythema of posterior pharynx. No exudates. Lymphatics: No mandibular or cervical lymphadenopathy Cardiovascular: RRR. No murmurs. No chest wall tenderness. Lungs: Clear to auscelltation bilaterally. Regular chest rise. Abdomen: Non-tender. No rebound or gaurding. Nl bowel sounds. Extremities: No edema. 2+ pulses radial and pedal pulses Skin: No rahses, abrasions, or contusions. Nl cap refill. Psych: Nl attention. A&Ox3 Neuro: baker pastry II-XII intact. 5/5 strength. Sensation to light touch and pinprick intact. - Assessment and Plan (1) Closed left femoral fracture Current Visit: Yes Status: Acute Assessment and Plan: Patient is a frail 63yo with hx of cervical cancer and fractures in the past who presents after a GLF and found to have a left femoral fracture. -No syncopal event before fall -No cardiac history that would limit surgical intervention -Cachexia from cancer may limit healing process -Case discussed with ortho before transfer to [facility] but will reach out to them again PLAN: - Pain control - Consult to ortho - Calcium and Vitamin D supplementation - Encourage smoking cessation (2) Seizure disorder Current Visit: Yes Status: Chronic Assessment and Plan: Hx of seizure disorder. Patient reports she has not had a seizure since 2013. Will continue pts. Dilantin. Monitor. (3) Cervical cancer Current Visit: Yes Status: Acute Assessment and Plan: Acute cervical cancer. Patient reports finishing txs. F/u as needed per Oncology. DVT Prophylaxis: Will start after surgery - Time Spent with Patient Total time spent is greater than 50% in coordination of care (as documented) at patient's floor/unit and/or counseling patient: Internal Medicine: Result - Labs CBC & Chem 7: 10/04/18 01:04 10/04/18 01:04 Labs: Short CBC 10/04/18 Range/Units 01:04 WBC 7.1 (4.3-11.1) K/mcL Hgb 10.2 L (11.5-15.4) g/dL Hct 30.3 L (35.3-44.9) % Plt Count 259 (140-400) K/mcL BMP 10/04/18 01:04 Sodium 136 Potassium 4.0 Chloride 101 Carbon Dioxide 30 H BUN 5 L Creatinine 0.33 L Glucose 126 H Calcium 8.4 L - Impressions Impressions Chest X-Ray 10/03/18 21:42 IMPRESSION: Stable portable study. D/ / Sandra Rhodes Cha, MD / Sandra Rhodes Cha, MD Interpreting Provider: Sandra Rhodes Cha, MD Echocardiogram 10/03/18 21:42 Impressions: LVEF 60%. Normal LV chamber size, wall thickness and function. Atypical septal motion consistent with bundle branch block. Mild left ventricular diastolic dysfunction. Normal right ventricular structure and function. Mild mitral regurgitation. Moderate pulmonary hypertension. Left Ventricular Wall Motion: Rest Echo Findings All wall segments showed normal motion. Findings: Study Quality * Technically adequate exam. ECG Findings * Sinus rhythm with BBB. Left Ventricle * LVEF 60%. * Normal LV chamber size, wall thickness and function. * Atypical septal motion consistent with bundle branch block. * Mild left ventricular diastolic dysfunction. Right Ventricle * Normal right ventricular structure and function. Left Atrium * Mildly dilated left atrium. Right Atrium * Normal right atrial size. Interatrial Septum * Interatrial septum not well evaluated. Aortic Valve * Trileaflet aortic valve with normal function. * No aortic regurgitation. * No aortic stenosis. Mitral Valve * Normal mitral valve structure. * Mild mitral regurgitation. * No mitral stenosis. Tricuspid Valve * Normal tricuspid valve structure and function. * Trace tricuspid regurgitation. * Moderate pulmonary hypertension. Pulmonic Valve * Normal pulmonic valve structure and function. * Trace pulmonic regurgitation. Aorta * Normally sized aortic root. Pericardium * The pericardium appears normal. IVC * Normal IVC dimensions and inspiratory collapse. Pulmonary Artery * Normal visualized portions of the main pulmonary artery. Consult Discharge Plan - Plan Referrals: NONE,PCP [Primary Care Provider] - _ (1) Closed left femoral fracture Qualifiers: Encounter type: initial encounter Femur location: unspecified portion of femur Fracture morphology: unspecified fracture morphology Qualified Code(s): S72.92XA - Unspecified fracture of left femur, initial encounter for closed fracture (3) Cervical cancer Qualifiers: Malignant neoplasm of cervix location: unspecified location Qualified Code(s): C53.9 - Malignant neoplasm of cervix uteri, unspecified
[2018-10-04 16:08] LABS: Prothrombin Time 11.8 Seconds (9.4-12.1)
--- NOTE | 2018-10-04 16:21 | Orthopedic Consult Note ---
Date of Encounter: 10/04/18 Time of Encounter: 16:19 Assessment and Plan (1) Left displaced femoral neck fracture Current Visit: Yes Status: Acute The patient scheduled for a left hip arthroplasty tomorrow morning. The risks, benefits, and alternatives were discussed. Informed consent was obtained. History of Present Illness Chief complaint: Left hip pain HPI: Ms. Lilly is a 63 year old female status post fall yesterday afternoon sustaining a left hip fracture. The patient states she was in the backyard playing with her granddaughter, when she was walking backwards and fell over. She denies loss consciousness after fall. She denies dizziness prior to fall and no chest pain or shortness of breath. The patient was transferred from the [facility] for surgical management. The patient is a community ambulator. Past medical history significant for cervical cancer. She completed radiation therapy 2 months ago. She has noted chronic swelling of her feet since the radiation therapy. Past Med Surg Social Fam HX - Past Medical History Medical history: cancer (Cervical), GERD, hypertension, seizures Additional medical history: anemia Psychiatric history: depression - Past Surgical History Surgical History: cholecystectomy Additional surgical history: rt shoulder replacement. port to right chest - Social History Smoking Status: Current every day smoker Packs per day: 1 PPD Smokeless Tobacco Status: No Alcohol use: none Drug use: none - Family History Father Race: Family Member Ethnicity: Non- Living Status: Still Living Hx Family Cardiac Disorders: Yes (CAD, Pacemaker) Hx Family Endocrine Disorder: Yes (DM) Mother Race: Family Member Ethnicity: Non- Living Status: Age at : 76 Cause of : COPD Hx Family Respiratory Disorders: Yes (COPD) Brother Race: Family Member Ethnicity: Non- Living Status: Age at : 48 Cause of : Brain tumor Hx Family Cancer: Yes (Brain tumor) Sister Race: Family Member Ethnicity: Non- Hx Family Medical Disorders: No Medications and Allergies Gabapentin [Neurontin] 600 mg PO 0800 07/11/16 [History] Gabapentin [Neurontin] 600 mg PO HS 07/11/16 [History] Lisinopril [Zestril] 20 mg PO DAILY 07/11/16 [History] Phenytoin ER [Dilantin ER] 100 mg PO BID 07/11/16 [History] Tizanidine HCl 4 mg PO TID PRN 07/11/16 [History] Dicyclomine [Bentyl] 20 mg PO QID PRN 12/27/16 [History] Omeprazole [PriLOSEC] 40 mg PO DAILY 12/27/16 [History] Duloxetine HCl [Cymbalta] 60 mg PO DAILY 04/12/17 [History] Folic Acid 1 mg PO DAILY #30 tablet 06/02/18 [Rx] Oxybutynin Chloride [Ditropan XL] 15 mg PO BID 30 Days #60 tab 09/03/18 [Rx] Gabapentin [Neurontin] 800 mg PO 1200 10/03/18 [History] Oxycodone HCl [Oxaydo] 7.5 mg PO Q6H PRN 10/03/18 [History] Tiotropium Br/Olodaterol HCl [Stiolto Respimat Inhal [place]] 4 gm IH QAM 10/03/18 [History] Allergy/AdvReac Type Severity Reaction Status Date / Time sulfamethoxazole Allergy Swelling Verified 10/03/18 14:48 [From Bactrim] of Lip/Tongue/Throat trimethoprim [From Bactrim] Allergy Swelling Verified 10/03/18 14:48 of Lip/Tongue/Throat All Systems Reviewed: The remainder of the systems were reviewed and are negative Physical Exam - Constitutional Vitals: Temp Pulse Resp BP Pulse Ox 99.4 F 88 17 156/91 93 10/04/18 15:56 10/04/18 15:56 10/04/18 15:56 10/04/18 15:56 10/04/18 15:56 General appearance IM: A&O X 3, pleasant, no acute distress, answers questions appropriately Exam: Head normocephalic/atraumatic Neck supple nontender Bilateral upper extremities: Good motion skin is intact minor abrasion to right elbow no tenderness over long bones or joints Right lower extremity: Normal range of motion, no tenderness, mild pedal edema Left lower extremity: Shortened and externally rotated, painful range of motion hip with positive anterior groin tenderness. no tenderness, mild swelling of left foot. Neurovascular intact distally. Results - Labs Result Diagrams: 10/04/18 01:04 10/04/18 01:04 Labs: Abnormal lab results RBC 3.20 M/mcL (3.82-4.97) L 10/04/18 01:04 Hgb 10.2 g/dL (11.5-15.4) L 10/04/18 01:04 Hct 30.3 % (35.3-44.9) L 10/04/18 01:04 MPV 9.1 fL (9.4-12.4) L 10/04/18 01:04 Carbon Dioxide 30 mEq/L (23-29) H 10/04/18 01:04 BUN 5 mg/dL (8-23) L 10/04/18 01:04 Creatinine 0.33 mg/dL (0.60-1.20) L 10/04/18 01:04 Glucose 126 mg/dL (70-105) H 10/04/18 01:04 Calcium 8.4 mg/dL (8.6-10.3) L 10/04/18 01:04 H & H 10/04/18 Range/Units 01:04 Hgb 10.2 L (11.5-15.4) g/dL Hct 30.3 L (35.3-44.9) % All other labs normal. - Diagnostic results Hip CT: image reviewed (Left hip femoral neck fracture, displaced) Consult Discharge Plan - Plan Referrals: NONE,PCP [Primary Care Provider] -
[2018-10-05] MEDS: 0.9 % Sodium Chloride 1,000 ML IVC SCH ×2 (00:49→00:50)
[2018-10-05] MEDS: *HR* OxyCODONE Immed Rel 5 MG TABLET PO PRN ×6 (01:22→23:23)
[2018-10-05] MEDS: Nicotine 14 MG PATCH.TD24 TD SCH ×2 (01:22→23:23)
[2018-10-05] MEDS: Lisinopril 20 MG TABLET PO SCH (08:30)
[2018-10-05] MEDS: tiZANidine 4 MG TABLET PO PRN (08:31)
[2018-10-05] MEDS: Gabapentin 300 MG CAPSULE PO SCH ×2 (08:37→19:36)
--- NOTE | 2018-10-05 08:55 | Anesthesia Evaluation PreOp ---
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 L1-L5/S1 facet arthropathy) Other Medical History: GERD, Other (Recent Dx Cervical Ca s/p chemoTx & RadTx completed late 08/2018) Anesthesia History: No Prior Anesthetic Complications, Past Anesthesia (Juliet, R-shoulder replacement, R-chest A-port, Kyphoplasty) Alcohol Use: none Drug use: none Medications and Allergies Gabapentin [Neurontin] 600 mg PO 0800 07/11/16 [History] Gabapentin [Neurontin] 600 mg PO HS 07/11/16 [History] Lisinopril [Zestril] 20 mg PO DAILY 07/11/16 [History] Phenytoin ER [Dilantin ER] 100 mg PO BID 07/11/16 [History] Tizanidine HCl 4 mg PO TID PRN 07/11/16 [History] Dicyclomine [Bentyl] 20 mg PO QID PRN 12/27/16 [History] Omeprazole [PriLOSEC] 40 mg PO DAILY 12/27/16 [History] Duloxetine HCl [Cymbalta] 60 mg PO DAILY 04/12/17 [History] Folic Acid 1 mg PO DAILY #30 tablet 06/02/18 [Rx] Oxybutynin Chloride [Ditropan XL] 15 mg PO BID 30 Days #60 tab 09/03/18 [Rx] Gabapentin [Neurontin] 800 mg PO 1200 10/03/18 [History] Oxycodone HCl [Oxaydo] 7.5 mg PO Q6H PRN 10/03/18 [History] Tiotropium Br/Olodaterol HCl [Stiolto Respimat Inhal [place]] 4 gm IH QAM 10/03/18 [History] Allergy/AdvReac Type Severity Reaction Status Date / Time sulfamethoxazole Allergy Swelling Verified 10/03/18 14:48 [From Bactrim] of Lip/Tongue/Throat trimethoprim [From Bactrim] Allergy Swelling Verified 10/03/18 14:48 of Lip/Tongue/Throat - Meds/Allergy Pre-op Review Medications Reviewed: Yes Allergies Reviewed: Yes Beta Blockers on Current Med List: No Anesthesia Results - Labs 10/04/18 01:04 10/04/18 01:04 Laboratory Tests 10/03/18 10/04/18 10/04/18 15:39 01:04 15:49 PT 11.8 INR 1.0 APTT 37.2 H Est GFR (Non-Af Amer) > 60 Calcium 8.4 L Magnesium 1.7 Impressions Chest X-Ray 10/03/18 21:42 IMPRESSION: Stable portable study. D/ / Sandra Rhodes Cha, MD / Sandra Rhodes Cha, MD Interpreting Provider: Sandra Rhodes Cha, MD Echocardiogram 10/03/18 21:42 Impressions: LVEF 60%. Normal LV chamber size, wall thickness and function. Atypical septal motion consistent with bundle branch block. Mild left ventricular diastolic dysfunction. Normal right ventricular structure and function. Mild mitral regurgitation. Moderate pulmonary hypertension. Left Ventricular Wall Motion: Rest Echo Findings All wall segments showed normal motion. Findings: Study Quality * Technically adequate exam. ECG Findings * Sinus rhythm with BBB. Left Ventricle * LVEF 60%. * Normal LV chamber size, wall thickness and function. * Atypical septal motion consistent with bundle branch block. * Mild left ventricular diastolic dysfunction. Right Ventricle * Normal right ventricular structure and function. Left Atrium * Mildly dilated left atrium. Right Atrium * Normal right atrial size. Interatrial Septum * Interatrial septum not well evaluated. Aortic Valve * Trileaflet aortic valve with normal function. * No aortic regurgitation. * No aortic stenosis. Mitral Valve * Normal mitral valve structure. * Mild mitral regurgitation. * No mitral stenosis. Tricuspid Valve * Normal tricuspid valve structure and function. * Trace tricuspid regurgitation. * Moderate pulmonary hypertension. Pulmonic Valve * Normal pulmonic valve structure and function. * Trace pulmonic regurgitation. Aorta * Normally sized aortic root. Pericardium * The pericardium appears normal. IVC * Normal IVC dimensions and inspiratory collapse. Pulmonary Artery * Normal visualized portions of the main pulmonary artery. - Imaging EKG: report reviewed Anesthesia Exam Vital Signs Temp Pulse Resp BP Pulse Ox 10/05/18 08:03 98.4 F 83 17 168/98 93 10/05/18 02:33 98.6 F 89 16 161/91 91 10/04/18 23:45 98.4 F 93 18 158/82 91 10/04/18 19:33 98.5 F 83 20 151/79 94 10/04/18 15:56 99.4 F 88 17 156/91 93 10/04/18 10:46 98.8 F 91 15 150/91 96 Intake and Output 10/04/18 10/05/18 10/05/18 23:59 07:59 15:59 Intake Total 120 / 1360 Output Total 1999 Balance -1880 / -191 Intake: Oral 120 / 360 Output: Catheter 1999 Urethral (Camp) 800 / 1600 Other: Meal Dinner Percent of Meal Consumed 80% Weight 45.06 kg Patient Weight 10/05/18 23:59 Weight 45.06 kg Height: 4'11" Weight: 99# BMI = 20 - HEENT Pupil (Motor): Pupils equal, EOMI Mallampati: II Teeth: Edentulous Oral Opening: Greater than 3 - CONTRACT PREPARER LOC: Oriented CONTRACT PREPARER Motor: Normal RUE, Normal LUE, Normal LLE, Normal Face, Deficit RLE CONTRACT PREPARER Sensory: Normal: RUE, LUE, LLE, Face, Deficit: RLE - Cardiac Rhythm: Regular Murmur: None - Pulmonary Breath Sounds: bilateral Clear Respiratory Effort: Symmetrical Anesthesia Assess/Plan ASA Score: 3 (HTN, Smoker, Sz, Cervical Ca) Level of consciousness: Cooperative, Oriented, Tranquil Anesthetic Plan: General, Spinal Regional Nerve Block Plan: Adductor canal Autologous Blood: Yes Recovery Plan: PACU Anes Supervising Prov Stmt: Pt seen/evaluated, R&B Discussed, questions answered and consent obtained. Saud ramirez MD
[2018-10-05] MEDS ORDERED: EPHEDrine 50 MG/ML VIAL ONE (09:16)
[2018-10-05] MEDS ORDERED: *HR* Propofol 200 MG/20 ML VIAL IVP ONE ×3 (09:16→13:49)
[2018-10-05] MEDS ORDERED: Lidocaine HCL 4 ML Topical Solution (Laryng-O-Jet Kit Sterile Pak) TP ONE (09:22)
[2018-10-05] MEDS ORDERED: Lidocaine -MPF 2% 2 ML VIAL ONE (09:22)
[2018-10-05] MEDS ORDERED: Ondansetron 4 MG/2 ML VIAL ONE (09:22)
[2018-10-05] MEDS ORDERED: *HR* FentaNYL (PF) 100 MCG/2 ML VIAL ONE ×2 (09:24→10:21)
[2018-10-05] MEDS ORDERED: *HR* Midazolam HCl 2 MG/2 ML VIAL ONE (09:24)
[2018-10-05] MEDS ORDERED: *HR* Rocuronium Bromide 50 MG/5 ML VIAL ONE (09:24)
[2018-10-05] MEDS ORDERED: ceFAZolin 2,000 MG in Water for inj. (sterile) 20 ML IVP ONE (10:22)
[2018-10-05] MEDS ORDERED: Bupivacaine/PF 0.75% in Dex 2 ML AMPUL INFILT ONE (10:25)
[2018-10-05] MEDS ORDERED: Acetaminophen IV 1,000 MG/100 ML INFUS..BTL ONE (10:26)
[2018-10-05] MEDS ORDERED: EPINEPHrine 1 MG/ML VIAL ONE (10:48)
[2018-10-05] MEDS ORDERED: Ethanol\\Acetic Acid\\Na Ace\\Ben 1,000 ML IRRIG.SOLN IR ONE ×2 (11:07→13:24)
[2018-10-05] MEDS ORDERED: *HR* PHENYLEPHRINE 1,000 MCG/10 ML SYRINGE IVP ONE ×2 (12:19→13:31)
--- NOTE | 2018-10-05 12:37 | Anesthesia Procedures ---
Date of Encounter: 10/05/18 Time of Encounter: 11:00 Procedures: Anesthesia - Epidural/Spinal Patient ID/Chart reviewed: Yes Patient examined: Yes Supplemental Oxygen: Nasal Cannula Sedation: Versed (mg): 2 Sedation: Fentanyl (mcg): 100 Site Prep: Aseptic Technique, Sterile prep and drape, Povidone-Iodine 1% Patient position: right lateral decubitus Local Anesthetic: Lidocaine 1% Amount of Local Anesthetic used: 3 Interspace Used: L2-L3 Loss of Resistance (MIHAI): Yes Blood: No CSF: Yes Paresthesia: No Spinal Needle Gauge: 25 (Kitty via introducer after unsuccessful Pencar attempt) Spinal Dose: 2mL x 0.05% Bupiv + 25mcg Fentanyl + Epi Wash Procedure: L-Manuel Hip Vitals + FHT's: See Anesthesia Record - Nerve Block Procedure Date: 10/05/18 Time: 11:00 Allergies/Adv Reactions: Bactrim Pre-op Diagnosis: L-Hip Fx Surgical Procedure: L-Manuel Hip Checklist: Correct Patient Identifier, Correct procedure, History checked Correct side: Left Blood Thinner: No Monitor Applied: EKG, BP, Pulse Oximetry Supplemental Oxygen via Nasal Cannula (L/min): 2 Sedation: Versed (mg): 2 Sedation: Fentanyl (mcg): 100 Indication: Primary Anesthesia Pre-op Neuro Deficits: Yes (Pain, Decreased ROM) Block Type: Other (SAB) Catheter placed: No Sterile Technique: Yes Ultrasound used: No Anatomy identified: Yes Visual spread of Local: No Neuro Stimulation: No Blood on Needle Aspiration: No Smooth Injection of Local: Yes Pain with Injection of Local: No Prep: Betadine Anes Supervising Prov Stmt: Pt R-lateral decubitus position. Sterile P&D. Landmarks identified. 3mL x 1% Lidocaine to L2-3. Midline approach 25G Kitty x 1, after unsuccessful 25G Pencar attempts. + freely flowing CSF. 2mL x 0.05% Spinal Bupiv + 25mcg Fentanyl placed. Pt tolerated procedure well. VSS. Pt comfortable at procedural start. No immediate complications. Saud Acuna MD
[2018-10-05] MEDS ORDERED: *HR* FentaNYL (PF) 100 MCG/2 ML VIAL IVP PRN (14:12)
--- NOTE | 2018-10-05 14:14 | Internal Med Progress Note ---
Hospitalist Progress Note - Encounter Date of Encounter: 10/05/18 Time of Encounter: 14:11 - Subjective Interval History: Patient going for surgery today. Pain currently controlled. She does not have any other complaints. - Exam Vitals: Temp Pulse Resp BP Pulse Ox 98.4 F 83 17 168/98 93 10/05/18 08:03 10/05/18 08:03 10/05/18 08:03 10/05/18 08:03 10/05/18 08:03 Exam: General: Ill-appearing and in no acute distress HEENT: No erythema of posterior pharynx. No exudates. Lymphatics: No mandibular or cervical lymphadenopathy Cardiovascular: RRR. No murmurs. No chest wall tenderness. Lungs: Clear to auscelltation bilaterally. Regular chest rise. Abdomen: Non-tender. No rebound or gaurding. Nl bowel sounds. Extremities: No edema. 2+ pulses radial and pedal pulses Skin: No rahses, abrasions, or contusions. Nl cap refill. Psych: Nl attention. A&Ox3 Neuro: tack welder II-XII intact. 5/5 strength. Sensation to light touch and pinprick intact. - Assessment and Plan (1) Closed left femoral fracture Current Visit: Yes Status: Acute Assessment and Plan: Patient is a frail 63yo with hx of cervical cancer and fractures in the past who presents after a GLF and found to have a left femoral fracture. -No syncopal event before fall -No cardiac history that would limit surgical intervention -Cachexia from cancer may limit healing process -Ortho to take patient to surgery today PLAN: - Pain control - Surgery today - Calcium and Vitamin D supplementation - Encourage smoking cessation (2) Seizure disorder Current Visit: Yes Status: Chronic Assessment and Plan: Hx of seizure disorder. Patient reports she has not had a seizure since 2013. Will continue pts. Dilantin. Monitor. (3) Cervical cancer Current Visit: Yes Status: Acute Assessment and Plan: Acute cervical cancer. Patient reports finishing txs. F/u as needed per Oncology. DVT Prophylaxis: Will start after surgery Internal Medicine: Result - Labs CBC & Chem 7: 10/04/18 01:04 10/04/18 01:04 - ABG Interpretation ABG results: PT/INR, D-dimer PT 11.8 Seconds (9.4-12.1) 10/04/18 15:49 Consult Discharge Plan - Plan Referrals: NONE,PCP [Primary Care Provider] - (1) Closed left femoral fracture Qualifiers: Encounter type: initial encounter Femur location: unspecified portion of femur Fracture morphology: unspecified fracture morphology Qualified Code(s): S72.92XA - Unspecified fracture of left femur, initial encounter for closed fracture (3) Cervical cancer Qualifiers: Malignant neoplasm of cervix location: unspecified location Qualified Code(s): C53.9 - Malignant neoplasm of cervix uteri, unspecified
--- NOTE | 2018-10-05 14:16 | Operative Note ---
Date of procedure: 10/05/18 Pre-op diagnosis: Left hip displaced femoral neck fracture Post-op diagnosis: same Procedure: Left hip hemiarthroplasty Implants: Biomet echo system Complications: Fragmentation of proximal femur Anesthesia: MAC, spinal Surgeon: Tj Tapia Was there an certified anesthesiologist assistant present: No Estimated blood loss (cc): 250 Specimen: Sent to pathology Condition: stable Disposition: PACU Procedure in Detail: The patient received IV antibiotics in the holding area. She was brought to the operating room, sign in was performed. The patient underwent spinal anesthesia on the hospital bed, along with monitored anesthesia care. She was then transferred to the OR table in supine position. The patient was positioned in the right lateral decubitus position, supported by pelvic supports. Bony prominences of the right lower extremity were well padded. The left lower extremity was then prepped and draped in usual sterile fashion. A timeout was performed. The level of the greater trochanter was palpated, a 10 cm curvilinear posterior incision was made, followed by Bovie dissection. The hip abductor was sharply split in line with its fibers with a curved Potter scissors, incising the fascia over the gluteus ar also. The Charnley retractors were then positioned, making sure all not to go too deeply, to protect the sciatic nerve. The bursa over the greater trochanter was excised with Bovie electrocautery. The left hip was then internally rotated, putting the short external rotators on stretch. These were taken down from the insertion point with the Bovie cautery, starting from less of a trochanter and going approximately to the femoral neck. The capsule along the posterior femoral neck and head was then T'ed, giving exposure to the fractured femoral head/neck. The patient had bleeding in the muscle posteriorly. The Bovie is used and a kick was noted in the patient's leg, stimulating muscle. The head was then removed with a power corkscrew, and cutting the ligamentum teres. The head was measured and a size 3 mm diameter was chosen. The acetabulum was washed out of any bone fragments, and a trial head was placed giving a good fit. Next, the exposed fractured femoral neck was cleaned up with a rongeur. The canal finder was then inserted, followed by the lateralizer. We then started broaching with a press-fit broaches from the Priscilla [employer] echo tray. Starting with a press-fit 7, and moving up to a press-fit 8, keeping the appropriate anteversion, finally up to a press-fit 10. The trial stem was well fixed with no toggling. The broach was then removed. The canal was irrigated out and suctioned. The Priscilla [employer] Echo press-fit stem was then opened, using a lateralized 130 degree neck angle and a size tendon pressfit stem, the implant was tapped in place, making sure to keep the correct anteversion. Once well positioned, we trialed with a 43 mm diameter trial head, and a -3 mm neck length. Stability was checked along with leg length, it was felt that the leg length was slightly short. I then trialed with a neutral neck length. The leg lengths felt equal, the patient had good extension of the left lower extremity, is able to flex the hip, adduct, and internally rotated up to 45 degrees before the hip started subluxing out. And then moved up to a +3 mm neck length. This gave best stability up to 60 degrees before the hip started subluxing out. The trial components removed. The acetabulum was copiously irrigated with normal saline once again making sure it was well cleaned out. Next the 43 mm bipolar head was opened and assembled back table, with a +3 mm neck length. This assembled and tapped in place. The hip was reduced, and stability was checked once again. We had good stability. The joint was insufflated with Irrisept followed by Bactisure. While getting ready to close, the hip dislocated. It was noted there was dislocating out 45 degrees of internal rotation. We decided to change at the head and neck. While tapping out the entire stem came out. I then re-broached with a 10 broach, slightly increasing the anteversion, followed by 11 broach. We then trialed with a 42 head and neutral neck length. The hip was irreducible after several attempts. It was noted that the entire stem had rotated. The patient's proximal femur was very soft. A crack was not heard, the soft bone just simply gave way. The kinematic super cables was used and placed around the proximal femur. While tightening down, the bone was too soft and occluding the canal. The tension was taken off. I reintroduced a press-fit 9 broach opening up the canal. At this point, since the patient's bone was so soft it was decided to cement a [address] The canal was irrigated and brushed, then dried out. A cement restrictor was placed approximately 1-2 cm longer than the stem. We only had high viscosity cement, using striker Simplex I viscosity cement with gentamicin. When able to get the cement or down to the temporal nozzle communis muscles broken off and packed in cement into the canal. A size 9 Echo stem was then positioned gently tapping place and increasing the anteversion. The cement was allowed to cure. Excess cement was removed with curettes. Once cement was dry, we then trialed with a 42 mm head, starting with a -3 and then eventually going up to a +3 mm neck length. This gave good stability, with good leg lengths, and the hip was stable up until 60 degrees of internal rotation. A 42 mm bipolar head was opened and assembled on the back table with a +3 mm neck length. This was tapped in place on the stem. The hip was then reduced. Once again checked stability. The joint was once again soaked in Irrisept, followed by Bactisure and normal saline. The capsule was then closed with 2-0 FiberWire figure of 8 sutures. The leg was placed on Potter stand, and the short external rotators were reattached to the bone using the FiberWire. The tensor fascia along with the gluteus fascia was closed with FiberWire [id number] sutures and a #1 Vicryl running suture proximally. Once again irrigating the wound with pulse lavage. The deep fat layer was closed with 0 Vicryl, subcutaneous tissues with 2-0 Vicryl simple sutures, and finally the skin was closed with domingo. Sterile dressings were applied. A hip abduction wedge was in place between the patient's legs. She was then rolled over into supine position and transferred back onto the hospital bed where she was taken to the recovery room in stable condition.
[2018-10-05] MEDS ORDERED: MOM Conc 10 ML UD.LIQ PO PRN (14:51)
[2018-10-05] MEDS ORDERED: *HR* Promethazine 25 MG/ML VIAL IVP PRN (14:51)
[2018-10-05] MEDS ORDERED: tiZANidine 4 MG TABLET PO PRN (14:51)
[2018-10-05] MEDS ORDERED: Acetaminophen 325 MG TABLET PO PRN (14:51)
[2018-10-05] MEDS ORDERED: 0.9 % Sodium Chloride 1,000 ML IVC SCH (14:51)
[2018-10-05] MEDS ORDERED: Sennosides 8.6 MG TABLET PO PRN (14:51)
[2018-10-05] MEDS ORDERED: Naloxone 0.4 MG/ML INJ IVP PRN (14:51)
[2018-10-05] MEDS ORDERED: Ringers Solution, Lactated 1,000 ML IVC SCH (14:51)
[2018-10-05] MEDS ORDERED: Ondansetron 4 MG/2 ML VIAL IVP PRN (14:51)
[2018-10-05] MEDS ORDERED: traMADol 50 MG TABLET PO PRN (14:51)
[2018-10-05] MEDS ORDERED: Temazepam 15 MG CAPSULE PO PRN (14:51)
[2018-10-05] MEDS: Ascorbic Acid 500 MG TABLET PO SCH (15:39)
--- NOTE | 2018-10-05 16:19 | Anesthesia Evaluation Post Op ---
Date of Encounter: 10/05/18 Time of Encounter: 15:00 - Vital Signs Vital Signs: Last Vital Signs Temp 98.1 F 10/05/18 15:46 Pulse 82 10/05/18 15:46 Resp 18 10/05/18 15:46 BP 129/91 10/05/18 15:46 Pulse Ox 94 10/05/18 15:46 - Lungs Lungs: Clear Ascult./Percussion - Airway Airway: Non-obstructed - Cardiovascular Regular Rate - Mental Status Mental Status: Alert & Oriented, Answers Appropriately - Pain Pain Scale: 1 - Nausea Vomiting Nausea Vomiting: Not Present - Hydration Hydration: NPO - Discharge PostOp Status: Transfer Patient to floor
[2018-10-05] MEDS: Ondansetron 4 MG/2 ML VIAL IVP PRN (16:22)
[2018-10-05 17:07] LABS: Hemoglobin 10.5 g/dL (11.5-15.4); Mean Corpuscular HGB Conc 32.8 g/dL (31.6-35.5); Mean Corpuscular Hemoglobin 32.1 pg (28.0-33.3); Mean Corpuscular Volume 97.9 fL (83.0-100.0); Platelet Count 231 K/mcL (140-400); Red Blood Count 3.27 M/mcL (3.82-4.97); Red Cell Distribution Width 13.5 % (11.5-14.5)
[2018-10-05 17:09] LABS: White Blood Count 11.9 K/mcL (4.3-11.1)
[2018-10-05 17:27] LABS: BUN/Creatinine Ratio 12 (6-26); Blood Urea Nitrogen 4 mg/dL (8-23); Calcium 8.3 mg/dL (8.6-10.3); Carbon Dioxide 30 mEq/L (23-29); Chloride 97 mEq/L (98-107); Glucose 92 mg/dL (70-105); Osmolality,Calculated 283 (280-300); Potassium 3.9 mEq/L (3.5-5.1); Sodium 138 mEq/L (136-145); eGFR For African Americans > 60 (> 60); eGFR For Non-African Americans > 60 (> 60)
[2018-10-06] MEDS: *HR* OxyCODONE Immed Rel 5 MG TABLET PO PRN ×5 (03:57→20:47)
[2018-10-06 06:37] LABS: Basophils % 0.3 %; Eosinophils # 0.2 K/mcL (0.0-0.6); Eosinophils % 1.9 %; Immature Granulocytes % 0.5 % (0-4); Lymphocytes # 0.4 K/mcL (0.6-4.6); Lymphocytes % 5.3 %; Mean Corpuscular HGB Conc 33.5 g/dL (31.6-35.5); Mean Corpuscular Hemoglobin 32.7 pg (28.0-33.3); Mean Corpuscular Volume 97.7 fL (83.0-100.0); Mean Platelet Volume 9.3 fL (9.4-12.4); Monocytes # 0.5 K/mcL (0.0-1.3); Monocytes % 6.5 %; Neutrophils # 6.8 K/mcL (1.6-8.9); Platelet Count 207 K/mcL (140-400); Red Blood Count 2.66 M/mcL (3.82-4.97); Red Cell Distribution Width 13.5 % (11.5-14.5); Segmented Neutrophils % 85.5 %
[2018-10-06 06:39] LABS: Hematocrit 26.2 % (35.3-44.9); Hemoglobin 8.7 g/dL (11.5-15.4); Mean Corpuscular HGB Conc 33.2 g/dL (31.6-35.5); Mean Corpuscular Hemoglobin 32.5 pg (28.0-33.3); Mean Corpuscular Volume 97.8 fL (83.0-100.0); Mean Platelet Volume 9.4 fL (9.4-12.4); Platelet Count 216 K/mcL (140-400); Red Blood Count 2.68 M/mcL (3.82-4.97); Red Cell Distribution Width 13.3 % (11.5-14.5); White Blood Count 8.1 K/mcL (4.3-11.1)
[2018-10-06 06:41] LABS: Hemoglobin 8.7 g/dL (11.5-15.4)
[2018-10-06 06:53] LABS: BUN/Creatinine Ratio 12 (6-26); Blood Urea Nitrogen 4 mg/dL (8-23); Calcium 8.3 mg/dL (8.6-10.3); Carbon Dioxide 29 mEq/L (23-29); Chloride 98 mEq/L (98-107); Glucose 91 mg/dL (70-105); Osmolality,Calculated 276 (280-300); Potassium 3.8 mEq/L (3.5-5.1); Sodium 135 mEq/L (136-145); eGFR For African Americans > 60 (> 60); eGFR For Non-African Americans > 60 (> 60)
[2018-10-06] MEDS: Gabapentin 300 MG CAPSULE PO SCH ×2 (10:34→20:47)
[2018-10-06] MEDS: Ondansetron 4 MG/2 ML VIAL IVP PRN (10:35)
[2018-10-06] MEDS: Lisinopril 20 MG TABLET PO SCH (10:38)
[2018-10-06] MEDS: Ascorbic Acid 500 MG TABLET PO SCH ×2 (10:38→16:53)
[2018-10-06] MEDS: Multivit/Ca/Min/Fe/FA 1 TAB TABLET PO SCH (10:38)
[2018-10-06] MEDS: Folic Acid 1 MG TABLET PO SCH (10:39)
[2018-10-06] MEDS: *HR* Enoxaparin 30 MG/0.3 ML SYRINGE SQ SCH ×2 (11:05→16:53)
--- NOTE | 2018-10-06 13:23 | Orthopedics Progress Note ---
Date of Encounter: 10/06/18 Time of Encounter: 12:40 - Assessment and Plan (1) Left displaced femoral neck fracture Current Visit: Yes Status: Acute POD#1 s/p left hip hemiarthroplasty 10/05 Dressings to be changed tomorrow Continue with PT/PT - TTWB with walker Labs reviewed - H/H 8.7/26.0 - stayed stable on repeat lab later today. She is recommended for transfer to [facility] for further rehab Ice and elevate as needed. Pain control per primary team. DVT prophylaxis - lovenox [id number] then transition to aspirin 325mg daily for 4 weeks. Will follow up with Christiana Tellez PA-C in [place] office on 10/20 - office to fax appt card Subjective Principal diagnosis: POD#1 s/p left hip hemiarthroplasty 10/05/18 Interval history: Patient doing well today with no concerns. States therapy went well this morning and she feels like she is getting around well with the walker. Denies any numbness or tingling in extremities. pain is tolerable. no events overnight. Objective Vital signs: Vital Signs Temp Pulse Resp BP Pulse Ox 10/06/18 10:55 98.8 F 94 116/84 95 10/06/18 06:32 98.4 F 89 16 104/67 95 10/06/18 04:21 98.1 F 96 15 100/64 96 10/05/18 23:56 98.7 F 99 16 99/62 97 10/05/18 19:12 98.6 F 103 15 94/60 96 10/05/18 18:48 98.6 F 102 18 102/72 94 10/05/18 17:23 98.4 F 121 18 128/85 93 10/05/18 16:21 98.2 F 104 18 161/92 89 10/05/18 15:46 98.1 F 82 18 129/91 94 10/05/18 15:05 98.1 F 91 18 135/91 95 10/05/18 14:53 98.6 F 91 16 124/94 96 10/05/18 14:43 98.6 F 85 16 132/93 95 10/05/18 14:33 93 14 128/90 93 10/05/18 14:23 93 14 134/87 94 10/05/18 14:13 98.4 F 95 18 139/83 95 Intake and Output 10/05/18 10/06/18 10/06/18 23:59 07:59 15:59 Intake Total 100 / 120 Output Total 800 / 1800 Balance -700 / -1680 Intake: IV Fluids 100 / 120 Ancef 2,000 MG In 0.9 % Sodium 100 / 100 Chloride 100 ML @ 200 mls/hr IVPB Q8HR [facility] Rx#:[id number] Output: Catheter 800 / 1550 Incision: clean and dry (dressings to left hip are c/d/i with no visible drainage or surrounding erythema. no calf tenderness to palpation. good dorsiflexion of foot. sensation intact distally) - Labs CBC & BMP: 10/06/18 05:48 10/06/18 05:48 Labs: Abnormal lab results WBC 11.9 K/mcL (4.3-11.1) H D 10/05/18 16:51 RBC 2.66 M/mcL (3.82-4.97) L 10/06/18 05:48 RBC 2.68 M/mcL (3.82-4.97) L 10/06/18 05:48 Hgb 8.7 g/dL (11.5-15.4) L 10/06/18 05:48 Hgb 8.7 g/dL (11.5-15.4) L D 10/06/18 05:48 Hct 26.0 % (35.3-44.9) L 10/06/18 05:48 Hct 26.2 % (35.3-44.9) L 10/06/18 05:48 MPV 9.3 fL (9.4-12.4) L 10/06/18 05:48 Lymphocytes # 0.4 K/mcL (0.6-4.6) L 10/06/18 05:48 Sodium 135 mEq/L (136-145) L 10/06/18 05:48 Chloride 97 mEq/L (98-107) L 10/05/18 16:51 Carbon Dioxide 30 mEq/L (23-29) H 10/05/18 16:51 BUN 4 mg/dL (8-23) L 10/06/18 05:48 Creatinine 0.33 mg/dL (0.60-1.20) L 10/06/18 05:48 Glucose 126 mg/dL (70-105) H 10/04/18 01:04 Calculated Osmolality 276 (280-300) L 10/06/18 05:48 Calcium 8.3 mg/dL (8.6-10.3) L 10/06/18 05:48 Consult Discharge Plan - Plan Referrals: NONE,PCP [Primary Care Provider] -
[2018-10-06] MEDS: Gabapentin 400 MG CAPSULE PO SCH ×2 (14:26→20:43)
--- NOTE | 2018-10-06 15:12 | Internal Med Progress Note ---
Hospitalist Progress Note - Encounter Date of Encounter: 10/06/18 Time of Encounter: 15:12 - Subjective Interval History: Surgery went well yesterday. Denies pain or swelling. Discussed that she may need to go to a rehabilitation center short-term - Exam Vitals: Temp Pulse Resp BP Pulse Ox 98.8 F 94 16 116/84 95 10/06/18 10:55 10/06/18 10:55 10/06/18 06:32 10/06/18 10:55 10/06/18 10:55 Exam: General: Ill-appearing and in no acute distress HEENT: No erythema of posterior pharynx. No exudates. Lymphatics: No mandibular or cervical lymphadenopathy Cardiovascular: RRR. No murmurs. No chest wall tenderness. Lungs: Clear to auscelltation bilaterally. Regular chest rise. Abdomen: Non-tender. No rebound or gaurding. Nl bowel sounds. Extremities: No edema. 2+ pulses radial and pedal pulses Skin: No rahses, abrasions, or contusions. Nl cap refill. Psych: Nl attention. 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 5/5 strength. Sensation to light touch and pinprick intact. - Assessment and Plan (1) Closed left femoral fracture Current Visit: Yes Status: Acute Assessment and Plan: Patient is a frail 63yo with hx of cervical cancer and fractures in the past who presents after a GLF and found to have a left femoral fracture. 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 Patient reports she has not had a seizure since 2013. Will continue pts. Dilantin. Monitor. (3) Cervical cancer Current Visit: Yes Status: Acute Assessment and Plan: Acute cervical cancer. Patient reports finishing txs. F/u as needed per Oncology. DVT Prophylaxis: LMWH Internal Medicine: Result - Labs CBC & Chem 7: 10/06/18 05:48 10/06/18 05:48 Labs: Short CBC 10/05/18 10/06/18 10/06/18 Range/Units 16:51 05:48 05:48 WBC 11.9 H D 8.1 8.0 (4.3-11.1) K/mcL Hgb 10.5 L 8.7 L D 8.7 L (11.5-15.4) g/dL Hct 32.0 L 26.2 L 26.0 L (35.3-44.9) % Plt Count 231 216 207 (140-400) K/mcL Neutrophils # 6.8 (1.6-8.9) K/mcL BMP 10/05/18 10/06/18 16:51 05:48 Sodium 138 135 L Potassium 3.9 3.8 Chloride 97 L 98 Carbon Dioxide 30 H 29 BUN 4 L 4 L Creatinine 0.34 L 0.33 L Glucose 92 91 Calcium 8.3 L 8.3 L - ABG Interpretation ABG results: PT/INR, D-dimer PT 11.8 Seconds (9.4-12.1) 10/04/18 15:49 Consult Discharge Plan - Plan Referrals: NONE,PCP [Primary Care Provider] - (1) Closed left femoral fracture Qualifiers: Encounter type: initial encounter Femur location: unspecified portion of femur Fracture morphology: unspecified fracture morphology Qualified Code(s): S72.92XA - Unspecified fracture of left femur, initial encounter for closed fracture (3) Cervical cancer Qualifiers: Malignant neoplasm of cervix location: unspecified location Qualified Code(s): C53.9 - Malignant neoplasm of cervix uteri, unspecified
[2018-10-07] MEDS: *HR* OxyCODONE Immed Rel 5 MG TABLET PO PRN ×4 (00:48→13:40)
[2018-10-07] MEDS: Nicotine 14 MG PATCH.TD24 TD SCH (00:48)
[2018-10-07 02:49] LABS: Basophils % 0.3 %; Eosinophils # 0.1 K/mcL (0.0-0.6); Eosinophils % 1.9 %; Hematocrit 24.4 % (35.3-44.9); Hemoglobin 8.1 g/dL (11.5-15.4); Immature Granulocytes % 0.5 % (0-4); Lymphocytes # 0.6 K/mcL (0.6-4.6); Lymphocytes % 9.5 %; Mean Corpuscular HGB Conc 33.2 g/dL (31.6-35.5); Mean Corpuscular Hemoglobin 32.5 pg (28.0-33.3); Mean Platelet Volume 9.6 fL (9.4-12.4); Monocytes # 0.5 K/mcL (0.0-1.3); Monocytes % 7.3 %; Neutrophils # 5.1 K/mcL (1.6-8.9); Platelet Count 231 K/mcL (140-400); Red Blood Count 2.49 M/mcL (3.82-4.97); Red Cell Distribution Width 13.4 % (11.5-14.5); Segmented Neutrophils % 80.5 %; White Blood Count 6.3 K/mcL (4.3-11.1)
[2018-10-07 03:09] LABS: BUN/Creatinine Ratio 14 (6-26); Blood Urea Nitrogen 5 mg/dL (8-23); Calcium 7.9 mg/dL (8.6-10.3); Carbon Dioxide 30 mEq/L (23-29); Chloride 98 mEq/L (98-107); Glucose 110 mg/dL (70-105); Osmolality,Calculated 276 (280-300); Potassium 3.7 mEq/L (3.5-5.1); Sodium 134 mEq/L (136-145); eGFR For African Americans > 60 (> 60); eGFR For Non-African Americans > 60 (> 60)
[2018-10-07] MEDS: *HR* Enoxaparin 30 MG/0.3 ML SYRINGE SQ SCH (05:15)
[2018-10-07] MEDS: Multivit/Ca/Min/Fe/FA 1 TAB TABLET PO SCH (09:11)
[2018-10-07] MEDS: Ascorbic Acid 500 MG TABLET PO SCH (09:11)
[2018-10-07] MEDS: Lisinopril 20 MG TABLET PO SCH (09:11)
[2018-10-07] MEDS: Folic Acid 1 MG TABLET PO SCH (09:12)
[2018-10-07] MEDS: Gabapentin 300 MG CAPSULE PO SCH (09:14)
[2018-10-07] MEDS: Gabapentin 400 MG CAPSULE PO SCH (13:40)
--- NOTE | 2018-10-07 14:52 | Discharge Summary ---
Orders not resulted at time of discharge: Pending orders 10/05/18 14:22 Surgical Pathology [PTH] Routine Date of Encounter: 10/07/18 Time of Encounter: 14:44 - Discharge Diagnosis (1) Closed left femoral fracture Priority: Primary Status: Acute Qualifiers: Encounter type: initial encounter Femur location: unspecified portion of femur Fracture morphology: unspecified fracture morphology Qualified Code(s): S72.92XA - Unspecified fracture of left femur, initial encounter for closed fracture (2) Seizure disorder Priority: Secondary Status: Chronic (3) Cervical cancer Priority: Secondary Status: Acute Qualifiers: Malignant neoplasm of cervix location: unspecified location Qualified Code(s): C53.9 - Malignant neoplasm of cervix uteri, unspecified Hospital course: Ms. Lilly is a 63 year old female with hx of cervical cancer and fractures in the past who presents after a GLF and found to have a left femoral fracture s/p left hip hemiarthroplasty. Patient did well post-operatively without complications. Physical therapy evaluated patient and recommended SNF placement, however, patient refused this. Set her up with home health. Will f/u with ortho and PCP. Discharge discussed with: patient - Time Spent with Patient Total time spent providing and/or coordinating discharge services: 65 minutes Time spent: Greater than 30 minutes - Discharge Medications Prescriptions: New OxyCODONE Immed Rel [Roxicodone 10 MG] 10 mg PO Q6-12H PRN 7 Days #30 tab PRN Reason: Pain Calcium Carbonate [Calcium] 500 mg PO QDPC #60 tablet Cholecalciferol (Vitamin D3) [Vitamin D] 2,000 unit PO QDPC #30 capsule Continued Tizanidine HCl 4 mg PO TID PRN PRN Reason: Muscle Spasm Phenytoin ER [Dilantin ER] 200 mg PO BID Lisinopril [Zestril] 20 mg PO DAILY Gabapentin [Neurontin] 600 mg PO 0800,2100 Omeprazole [PriLOSEC] 40 mg PO DAILY Duloxetine HCl [Cymbalta] 60 mg PO DAILY Folic Acid 1 mg PO DAILY #30 tablet Oxybutynin Chloride [Ditropan XL] 15 mg PO BID 30 Days #60 tab Alendronate Sodium 70 mg PO WE Ibuprofen [Motrin Ib] 400 mg PO Q12H PRN PRN Reason: Pain Sodium Chloride [Sodium Chloride Tab] 1 gm PO BID Gabapentin [Neurontin] 800 mg PO 1200,1700 Tiotropium Br/Olodaterol HCl [Stiolto Respimat Inhal [place]] 4 gm IH QAM Discontinued Oxycodone HCl/Acetaminophen [Percocet 7.5-325 mg Tablet] 1 each PO Q12H PRN PRN Reason: Pain Home Medications: Gabapentin [Neurontin] 600 mg PO 0800,2100 07/11/16 [History] Lisinopril [Zestril] 20 mg PO DAILY 07/11/16 [History] Phenytoin ER [Dilantin ER] 200 mg PO BID 07/11/16 [History] Tizanidine HCl 4 mg PO TID PRN 07/11/16 [History] Omeprazole [PriLOSEC] 40 mg PO DAILY 12/27/16 [History] Duloxetine HCl [Cymbalta] 60 mg PO DAILY 04/12/17 [History] Folic Acid 1 mg PO DAILY #30 tablet 06/02/18 [Rx] Oxybutynin Chloride [Ditropan XL] 15 mg PO BID 30 Days #60 tab 09/03/18 [Rx] Gabapentin [Neurontin] 800 mg PO 1200,1700 10/03/18 [History] Tiotropium Br/Olodaterol HCl [Stiolto Respimat Inhal [place]] 4 gm IH QAM 10/03/18 [History] Alendronate Sodium 70 mg PO WE 10/05/18 [History] Ibuprofen [Motrin Ib] 400 mg PO Q12H PRN 10/05/18 [History] Sodium Chloride [Sodium Chloride Tab] 1 gm PO BID 10/05/18 [History] Calcium Carbonate [Calcium] 500 mg PO QDPC #60 tablet 10/07/18 [Rx] Cholecalciferol (Vitamin D3) [Vitamin D] 2,000 unit PO QDPC #30 capsule 10/07/18 [Rx] OxyCODONE Immed Rel [Roxicodone 10 MG] 10 mg PO Q6-12H PRN 7 Days #30 tab 10/07/18 [Rx] Allergies/Adverse Reactions: Allergy/AdvReac Type Severity Reaction Status Date / Time sulfamethoxazole Allergy Swelling Verified 10/05/18 16:02 [From Bactrim] of Lip/Tongue/Throat trimethoprim [From Bactrim] Allergy Swelling Verified 10/05/18 16:02 of Lip/Tongue/Throat Date of admission: 10/04/18 01:03 Primary care physician: PCP NONE Consults: 10/03/18 20:27 Consult to Nutrition [CONS] Routine Comment: VANILLA BOOST OR ENSURE Consulting Provider: NUTRITION Reason for Dietary Consult: MST Score PO Supplementation 10/04/18 00:55 Consult to Occupational Therapy [CONS] Routine Comment: Evaluate, develop and implement POC Reason for Consult: Patient fractured left femur after fall today. Please assess patient post-surgery for ambulation safety, strength, stability, and home assistive/rehabilitation needs for post-discharge planning. Does patient have active BEDREST order?: Yes Is patient medically & hemodynamically stable?: Yes Patient assessed for mobility or mobilized this visit?: No Consult to Frit Mixer [CONS] Routine Reason for SW Consult: Please assess patient for possible home/rehabilitation needs for post-discharge planning. 10/04/18 00:57 Consult to Physical Therapy [CONS] Routine Comment: Evaluate, develop and implement POC Reason for Consult: Patient fractured left femur after fall today. Please assess patient post-surgery for ambulation safety, strength, stability, and home assistive/rehabilitation needs for post-discharge planning. Does patient have active BEDREST order?: Yes Is patient medically & hemodynamically stable?: Yes Patient assessed for mobility or mobilized this visit?: No 10/05/18 14:51 Consult to Nurse Navigator [CONS] Routine Comment: ortho navigator Consult to Nutrition [CONS] Routine Comment: Consulting Provider: NUTRITION Reason for Dietary Consult: Other Other:: Proper nutrition to facilitate wound healing Consult to Occupational Therapy [CONS] Routine Comment: Evaluate, develop and implement POC Reason for Consult: hip rhys replacement Does patient have active BEDREST order?: No Is patient medically & hemodynamically stable?: Yes Consult to Physical Therapy [CONS] Routine Comment: Evaluate, develop and implement POC Reason for Consult: hip rhys replacement Does patient have active BEDREST order?: No Is patient medically & hemodynamically stable?: Yes Consult to Frit Mixer [CONS] Routine Reason for SW Consult: post op joint replacement RT Post Op Consult [CONS] Routine 10/06/18 15:14 Consult to Physical Therapy [CONS] Routine Comment: Evaluate, develop and implement POC Reason for Consult: s/p ortho surgery, may need SNF Does patient have active BEDREST order?: No Is patient medically & hemodynamically stable?: Yes Patient assessed for mobility or mobilized this visit?: No - Constitutional Vitals: Temp Pulse Resp BP Pulse Ox 98.3 F 104 18 120/78 96 10/07/18 11:08 10/07/18 11:08 10/07/18 11:08 10/07/18 11:08 10/07/18 11:08 General appearance: Present: cooperative, mild distress, A&O X 3, pleasant, underweight, answers questions appropriately Exam: General: Ill-appearing and in no acute distress HEENT: No erythema of posterior pharynx. No exudates. Lymphatics: No mandibular or cervical lymphadenopathy Cardiovascular: RRR. No murmurs. No chest wall tenderness. Lungs: Clear to auscelltation bilaterally. Regular chest rise. Abdomen: Non-tender. No rebound or gaurding. Nl bowel sounds. Extremities: No edema. 2+ pulses radial and pedal pulses Skin: No rahses, abrasions, or contusions. Nl cap refill. Psych: Nl attention. 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 5/5 strength. Sensation to light touch and pinprick intact. - Patient Status Disposition: Home, Self-Care Condition: Fair Functional capacity at discharge: uses cane/walker Overall status at discharge: patient is progressing back to baseline - Discharge Instructions Follow Up With: NONE,PCP [Primary Care Provider] - - Diet and Activity Activity: as per physical therapy Diet: advance to your usual diet
--- NOTE | 2018-10-07 15:15 | Physician Discharge Referral ---
Home Health/Hosp Referral Info Transfer to: Home Health Attending Provider: Marcial Valle MD Provider in Charge Post Discharge: PCP - Diagnosis (1) Closed left femoral fracture Priority: Primary Status: Acute (2) Seizure disorder Priority: Secondary Status: Chronic (3) Cervical cancer Priority: Secondary Status: Acute - Respiratory Orders Smoking Cessation: Smoking cessation has been advised. For more information, call the [place] Tobacco Quit Line at 3-741-TFXR-NOW. - Diet/Nutrition Diet/Nutrition Orders: Regular - Activity Activity Orders: Ambulate - Services Needed Following services are medically necessary services: Nursing, Home Health Aide, Physical Therapy, Occupational Therapy, Med Social Work - Transfer Medications Prescriptions: Calcium Carbonate [Calcium] 500 mg PO QDPC #60 tablet OxyCODONE Immed Rel [Roxicodone 10 MG] 10 mg PO Q6-12H PRN 7 Days #30 tab PRN Reason: Pain Cholecalciferol (Vitamin D3) [Vitamin D] 2,000 unit PO QDPC #30 capsule Home Medications: Gabapentin [Neurontin] 600 mg PO 0800,2100 07/11/16 [History] Lisinopril [Zestril] 20 mg PO DAILY 07/11/16 [History] Phenytoin ER [Dilantin ER] 200 mg PO BID 07/11/16 [History] Tizanidine HCl 4 mg PO TID PRN 07/11/16 [History] Omeprazole [PriLOSEC] 40 mg PO DAILY 12/27/16 [History] Duloxetine HCl [Cymbalta] 60 mg PO DAILY 04/12/17 [History] Folic Acid 1 mg PO DAILY #30 tablet 06/02/18 [Rx] Oxybutynin Chloride [Ditropan XL] 15 mg PO BID 30 Days #60 tab 09/03/18 [Rx] Gabapentin [Neurontin] 800 mg PO 1200,1700 10/03/18 [History] Tiotropium Br/Olodaterol HCl [Stiolto Respimat Inhal [place]] 4 gm IH QAM 10/03/18 [History] Alendronate Sodium 70 mg PO WE 10/05/18 [History] Ibuprofen [Motrin Ib] 400 mg PO Q12H PRN 10/05/18 [History] Sodium Chloride [Sodium Chloride Tab] 1 gm PO BID 10/05/18 [History] Calcium Carbonate [Calcium] 500 mg PO QDPC #60 tablet 10/07/18 [Rx] Cholecalciferol (Vitamin D3) [Vitamin D] 2,000 unit PO QDPC #30 capsule 10/07/18 [Rx] OxyCODONE Immed Rel [Roxicodone 10 MG] 10 mg PO Q6-12H PRN 7 Days #30 tab 10/07/18 [Rx] Allergies/Adverse Reactions: Allergy/AdvReac Type Severity Reaction Status Date / Time sulfamethoxazole Allergy Swelling Verified 10/05/18 16:02 [From Bactrim] of Lip/Tongue/Throat trimethoprim [From Bactrim] Allergy Swelling Verified 10/05/18 16:02 of Lip/Tongue/Throat Certification: Further, I certify that my clinical findings support that this patient is homebound (i.e. absences from home require considerable and taxing effort and are for medical reasons or [facility] or infrequently or short duration when for other reasons) because: Patient is s/p ortho surgery and far below her mobility baseline with limited mobility. Homebound Reason: Patient requires assistance of a person or device to safely leave home, Post-surgery restriction and or conditions limit ability to leave home Attestation: My signature below is to certify that this patient is under my care and that I, or nurse practitioner, or a physician's staff physical therapy assistant working with me, has a [id number] encounter with this patient. Marcial Valle MD
[2018-10-07 15:43] VITALS: BP 104/71
--- NOTE | 2018-10-07 16:37 | Orthopedics Progress Note ---
Date of Encounter: 10/07/18 Time of Encounter: 13:20 - Assessment and Plan (1) Left displaced femoral neck fracture Status: Acute POD#2 s/p left hip hemiarthroplasty 10/05 Dressings to be changed today Continue with PT/PT - TTWB with walker Labs reviewed - H/H 8.03/27.4 - stable, asymptomatic She is recommended for transfer to [facility] for further rehab but patient is refusing and wants to go home with HH. Ice and elevate as needed. Pain control per primary team. DVT prophylaxis - recommend lovenox [id number] then transition to aspirin 325mg daily for 4 weeks. Will follow up with Christiana Tellez PA-C in [place] office on 10/20 - office to fax appt card Subjective Principal diagnosis: POD#2 s/p left hip hemiarthroplasty 10/05/18 Interval history: Patient doing well today with no concerns. States therapy went well this morning and she feels like she is getting around well with the walker. Denies any numbness or tingling in extremities. pain is tolerable. no events overnight. She states she is feeling well and she wants to go home, states she has several family members to help her. Objective Vital signs: Vital Signs Temp Pulse Resp BP Pulse Ox 10/07/18 15:42 98.8 F 103 16 104/71 97 10/07/18 11:08 98.3 F 104 18 120/78 96 10/07/18 07:16 98.5 F 104 16 131/82 93 10/07/18 02:01 99.4 F 94 18 118/72 92 10/07/18 00:01 99.6 F 102 18 112/72 93 10/06/18 20:58 93 10/06/18 19:23 99.2 F 99 18 96/61 93 10/06/18 16:49 99.0 F 92 18 94/60 93 Intake and Output 10/07/18 10/07/18 10/07/18 07:59 15:59 23:59 Intake Total 350 / 470 120 / 470 Output Total 200 / 200 Balance 150 / 270 120 / 270 Intake: Oral 350 / 470 120 / 470 Output: Urine 200 / 200 Other: Meal Breakfast Percent of Meal Consumed 25% # Voids 1 1 # Urine Diapers 1 Weight 46.36 kg Patient Weight 10/07/18 23:59 Weight 46.36 kg Incision: clean and dry (dressings to hip are c/d/i with no visible drainage or erythema, no calf tenderness to palpation, good dorsiflexion of foot, sensation intact distaly.) - Labs CBC & BMP: 10/07/18 01:02 10/07/18 01:02 Labs: Abnormal lab results WBC 11.9 K/mcL (4.3-11.1) H D 10/05/18 16:51 RBC 2.49 M/mcL (3.82-4.97) L 10/07/18 01:02 Hgb 8.1 g/dL (11.5-15.4) L 10/07/18 01:02 Hct 24.4 % (35.3-44.9) L 10/07/18 01:02 MPV 9.3 fL (9.4-12.4) L 10/06/18 05:48 Lymphocytes # 0.4 K/mcL (0.6-4.6) L 10/06/18 05:48 Sodium 134 mEq/L (136-145) L 10/07/18 01:02 Chloride 97 mEq/L (98-107) L 10/05/18 16:51 Carbon Dioxide 30 mEq/L (23-29) H 10/07/18 01:02 BUN 5 mg/dL (8-23) L 10/07/18 01:02 Creatinine 0.35 mg/dL (0.60-1.20) L 10/07/18 01:02 Glucose 110 mg/dL (70-105) H 10/07/18 01:02 Calculated Osmolality 276 (280-300) L 10/07/18 01:02 Calcium 7.9 mg/dL (8.6-10.3) L 10/07/18 01:02 Consult Discharge Plan - Plan Referrals: Christiana Tellez PAC [Physician Rural Carrier] - 10/20/18 10:00 am Prescriptions: Aspirin 325 mg PO QDPC #30 tablet Calcium Carbonate [Calcium] 500 mg PO QDPC #60 tablet Enoxaparin [Lovenox] 30 mg SQ Q12HR #28 syr OxyCODONE Immed Rel [Roxicodone 10 MG] 10 mg PO Q6-12H PRN 7 Days #30 tab PRN Reason: Pain Cholecalciferol (Vitamin D3) [Vitamin D] 2,000 unit PO QDPC #30 capsule
--- NOTE | 2018-10-08 13:26 | Electrocardiograph Report ---
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
== END 2018-10-07 17:30 | disposition home health service (06) | DRG 469 ==
LOC: 3NENU → EDSTATUS 10-05 10:05
PROVIDERS: ADMIT Internal Medicine; ATTEND Orthopaedic Surgery Hand Surgery

== ENCOUNTER 2019-06-29 16:38 | Inpatient (IN) ==
[2019-06-29] MEDS ORDERED: Naloxone 0.4 MG/ML INJ IVP PRN (18:37)
[2019-06-29] MEDS ORDERED: Ondansetron 4 MG/2 ML VIAL IVP PRN (18:37)
[2019-06-29] MEDS ORDERED: Ringers Solution, Lactated 1,000 ML IVC SCH (18:45)
[2019-06-29] MEDS: 0.9 % Sodium Chloride 1,000 ML IVC SCH (20:59)
[2019-06-29] MEDS: *HR* Heparin 5,000 UNIT/ML VIAL SQ SCH (20:59)
[2019-06-29 21:54] LABS: Bilirubin,Urine Negative (Negative); Blood,Urine Negative (Negative); Clarity,Urine Clear (Clear); Color,Urine Yellow (Yellow); Glucose,Urine (UA) Normal (Normal); Ketones,Urine Negative (Negative); Leukocyte Esterase,Urine Negative (Negative); Nitrite,Urine Negative (Negative); PH,Urine 6.5 pH Units (5.0-8.0); Protein,Urine Negative (Neg-Trace); Urobilinogen,Urine Normal (Normal)
[2019-06-30] MEDS ORDERED: Morphine Sulfate 2 MG/ML SYRINGE IVP ONE (03:31)
[2019-06-30 03:53] LABS: White Blood Count 16.2 K/mcL (4.3-11.1)
[2019-06-30 03:54] LABS: Basophils % 0.1 %; Eosinophils % 0.1 %; Hematocrit 31.9 % (35.3-44.9); Hemoglobin 10.4 g/dL (11.5-15.4); Immature Granulocytes % 0.5 % (0-4); Lymphocytes # 0.4 K/mcL (0.6-4.6); Lymphocytes % 2.6 %; Mean Corpuscular HGB Conc 32.6 g/dL (31.6-35.5); Mean Corpuscular Volume 91.9 fL (83.0-100.0); Monocytes # 0.7 K/mcL (0.0-1.3); Monocytes % 4.5 %; Neutrophils # 14.9 K/mcL (1.6-8.9); Platelet Count 373 K/mcL (140-400); Red Blood Count 3.47 M/mcL (3.82-4.97); Red Cell Distribution Width 14.9 % (11.5-14.5); Segmented Neutrophils % 92.2 %
[2019-06-30 03:55] LABS: Prothrombin Time 11.3 Seconds (9.4-12.1)
[2019-06-30 04:10] LABS: BUN/Creatinine Ratio 16 (6-26); Blood Urea Nitrogen 5 mg/dL (8-23); Calcium 8.2 mg/dL (8.6-10.3); Carbon Dioxide 29 mEq/L (23-29); Chloride 95 mEq/L (98-107); Chol/HDL Ratio 2.2 (0-4.9); Cholesterol 118 mg/dL (< 200); Glucose 100 mg/dL (70-105); HDL Cholesterol 53 mg/dL (40-59); LDL Cholesterol,Calculated 50 mg/dL (0-99); Magnesium 1.6 mg/dL (1.6-2.6); Osmolality,Calculated 265 (280-300); Phosphorous 3.8 mg/dL (2.7-4.5); Potassium 4.5 mEq/L (3.5-5.1); Sodium 129 mEq/L (136-145); Triglycerides 77 mg/dL (< 150); eGFR For African Americans > 60 (> 60); eGFR For Non-African Americans > 60 (> 60)
[2019-06-30] MEDS: *HR* Heparin 5,000 UNIT/ML VIAL SQ SCH ×3 (04:11→21:03)
[2019-06-30] MEDS: 0.9 % Sodium Chloride 1,000 ML IVC SCH (05:14)
[2019-06-30] MEDS ORDERED: tiZANidine 4 MG TABLET PO PRN (08:07)
[2019-06-30] MEDS ORDERED: Gabapentin 300 MG CAPSULE PO SCH (09:00)
[2019-06-30] MEDS ORDERED: Folic Acid 1 MG TABLET PO SCH (09:00)
[2019-06-30] MEDS ORDERED: lisinopriL 20 MG TABLET PO SCH (09:00)
[2019-06-30] MEDS ORDERED: (Tiotropium Br/Olodaterol Hcl [Stiolto Respimat Inhal) IH SCH (10:00)
[2019-06-30] MEDS ORDERED: Dexamethasone 4 MG/ML VIAL ONE (10:13)
[2019-06-30] MEDS ORDERED: Ondansetron 4 MG/2 ML VIAL ONE (10:13)
[2019-06-30] MEDS ORDERED: Lidocaine -MPF 2% 2 ML VIAL ONE (10:13)
[2019-06-30] MEDS ORDERED: *HR* FentaNYL (PF) 100 MCG/2 ML VIAL ONE (10:13)
[2019-06-30] MEDS ORDERED: *HR* Propofol 200 MG/20 ML VIAL IVP ONE (10:14)
[2019-06-30] MEDS ORDERED: *HR* Midazolam HCl 2 MG/2 ML VIAL ONE (10:14)
[2019-06-30] MEDS ORDERED: CeFAZolin Syr 2,000MG/20 ML 2,000 MG/20 ML SYRINGE IVPB ONE (11:29)
[2019-06-30] MEDS ORDERED: *HR* OxyCODONE Immed Rel 5 MG TABLET PO PRN (12:23)
[2019-06-30] MEDS ORDERED: Ondansetron 4 MG/2 ML VIAL IVP ONE (12:23)
[2019-06-30] MEDS ORDERED: *HR* Promethazine 25 MG/ML VIAL IVP PRN (12:23)
[2019-06-30] MEDS ORDERED: *HR* HYDROmorphone (PF) 1 MG/ML SYRINGE ONE (12:33)
[2019-06-30] MEDS: *HR* HYDROmorphone PF 0.5 MG/0.5 ML SYRINGE IVP PRN ×2 (12:35→12:40)
[2019-06-30 12:44] LABS: Hematocrit 33.9 % (35.3-44.9); Hemoglobin 10.8 g/dL (11.5-15.4)
[2019-06-30] MEDS ORDERED: Albuterol 2.5 MG/3 ML NEBULIZER IH ONE (13:03)
[2019-06-30] MEDS ORDERED: Albuterol 2.5 MG/3 ML NEBULIZER ONE (13:05)
[2019-06-30] MEDS ORDERED: Naloxone 0.4 MG/ML INJ IVP PRN (13:43)
[2019-06-30] MEDS ORDERED: 0.9 % Sodium Chloride 1,000 ML IVC SCH (13:43)
[2019-06-30] MEDS ORDERED: Ondansetron 4 MG/2 ML VIAL IVP PRN (13:43)
[2019-06-30] MEDS ORDERED: Ipratropium/Albuterol Neb 3 ML IH PRN (13:51)
[2019-06-30] MEDS: ceFAZolin 2,000 MG in 0.9 % Sodium Chloride 100 ML IVPB SCH (18:32)
[2019-06-30] MEDS: Acetaminophen IV 1,000 MG/100 ML INFUS..BTL IVPB SCH (19:59)
[2019-06-30] MEDS ORDERED: *HR* OxyCODONE Immed Rel 5 MG TABLET PO ONE (20:47)
[2019-06-30] MEDS: Gabapentin 300 MG CAPSULE PO SCH (21:02)
[2019-06-30] MEDS: Piperacillin/Tazobactam 3.375 GM in 0.9 % Sodium Chloride Mini Bag 100 ML IVPB SCH (23:15)
[2019-07-01] MEDS: ceFAZolin 2,000 MG in 0.9 % Sodium Chloride 100 ML IVPB SCH (03:00)
[2019-07-01] MEDS: Acetaminophen IV 1,000 MG/100 ML INFUS..BTL IVPB SCH (03:01)
[2019-07-01] MEDS: *HR* Heparin 5,000 UNIT/ML VIAL SQ SCH ×3 (06:17→20:48)
[2019-07-01 07:13] LABS: Basophils % 0.2 %; Eosinophils # 0.1 K/mcL (0.0-0.6); Eosinophils % 0.6 %; Hematocrit 29.6 % (35.3-44.9); Hemoglobin 9.4 g/dL (11.5-15.4); Immature Granulocytes % 0.6 % (0-4); Lymphocytes # 0.5 K/mcL (0.6-4.6); Lymphocytes % 3.5 %; Mean Corpuscular HGB Conc 31.8 g/dL (31.6-35.5); Mean Corpuscular Hemoglobin 30.2 pg (28.0-33.3); Mean Corpuscular Volume 95.2 fL (83.0-100.0); Mean Platelet Volume 9.1 fL (9.4-12.4); Monocytes # 0.9 K/mcL (0.0-1.3); Monocytes % 5.7 %; Platelet Count 349 K/mcL (140-400); Red Blood Count 3.11 M/mcL (3.82-4.97); Red Cell Distribution Width 15.4 % (11.5-14.5); Segmented Neutrophils % 89.4 %; White Blood Count 15.6 K/mcL (4.3-11.1)
[2019-07-01 07:37] LABS: % Iron Saturation 8 % (15-50); BUN/Creatinine Ratio 17 (6-26); Blood Urea Nitrogen 5 mg/dL (8-23); Carbon Dioxide 30 mEq/L (23-29); Chloride 98 mEq/L (98-107); Glucose 93 mg/dL (70-105); Iron 18 mcg/dL (50-170); Magnesium 1.8 mg/dL (1.6-2.6); Osmolality,Calculated 271 (280-300); Potassium 4.1 mEq/L (3.5-5.1); Sodium 132 mEq/L (136-145); Transferrin 158 mg/dL (203-362); eGFR For African Americans > 60 (> 60); eGFR For Non-African Americans > 60 (> 60)
[2019-07-01 07:52] LABS: Ferritin 96 ng/mL (10-120)
[2019-07-01 07:57] LABS: Folate 6.3 ng/mL (3.0-16.0)
[2019-07-01] MEDS: Gabapentin 300 MG CAPSULE PO SCH ×2 (08:12→20:47)
[2019-07-01] MEDS: Nicotine 14 MG PATCH.TD24 TD SCH (08:13)
[2019-07-01] MEDS: Folic Acid 1 MG TABLET PO SCH (08:13)
[2019-07-01] MEDS: Piperacillin/Tazobactam 3.375 GM in 0.9 % Sodium Chloride Mini Bag 100 ML IVPB SCH (08:14)
[2019-07-01] MEDS ORDERED: Acetaminophen 325 MG TABLET PO PRN (09:24)
[2019-07-01] MEDS ORDERED: Patient Taking Own Medication 1 EACH IH SCH (10:00)
[2019-07-01] MEDS: *HR* OxyCODONE/APAP 7.5/325 TABLET PO PRN ×2 (17:16→23:45)
[2019-07-01] MEDS: Simethicone 80 MG TAB.CHEW PO PRN (18:25)
[2019-07-01] MEDS: Acetaminophen 325 MG TABLET PO PRN (20:47)
[2019-07-02] MEDS: Acetaminophen 325 MG TABLET PO PRN ×3 (02:56→22:32)
[2019-07-02 03:12] LABS: Basophils % 0.3 %; Eosinophils # 0.1 K/mcL (0.0-0.6); Eosinophils % 0.8 %; Hematocrit 28.1 % (35.3-44.9); Hemoglobin 9.2 g/dL (11.5-15.4); Immature Granulocytes % 0.8 % (0-4); Lymphocytes # 0.6 K/mcL (0.6-4.6); Lymphocytes % 5.6 %; Mean Corpuscular HGB Conc 32.7 g/dL (31.6-35.5); Mean Corpuscular Hemoglobin 30.9 pg (28.0-33.3); Mean Corpuscular Volume 94.3 fL (83.0-100.0); Mean Platelet Volume 9.4 fL (9.4-12.4); Monocytes # 0.6 K/mcL (0.0-1.3); Monocytes % 5.8 %; Neutrophils # 9.4 K/mcL (1.6-8.9); Platelet Count 319 K/mcL (140-400); Red Blood Count 2.98 M/mcL (3.82-4.97); Red Cell Distribution Width 14.9 % (11.5-14.5); Segmented Neutrophils % 86.7 %; White Blood Count 10.9 K/mcL (4.3-11.1)
[2019-07-02 03:47] LABS: Blood Urea Nitrogen 6 mg/dL (8-23); Calcium 8.1 mg/dL (8.6-10.3); Carbon Dioxide 31 mEq/L (23-29); Chloride 98 mEq/L (98-107); Glucose 88 mg/dL (70-105); Magnesium 1.7 mg/dL (1.6-2.6); Osmolality,Calculated 275 (280-300); Potassium 3.9 mEq/L (3.5-5.1); Sodium 134 mEq/L (136-145)
[2019-07-02] MEDS: *HR* Heparin 5,000 UNIT/ML VIAL SQ SCH ×3 (05:17→22:25)
[2019-07-02] MEDS: *HR* OxyCODONE/APAP 7.5/325 TABLET PO PRN ×3 (06:33→18:39)
[2019-07-02] MEDS: Simethicone 80 MG TAB.CHEW PO PRN ×3 (06:34→22:32)
[2019-07-02] MEDS: Nicotine 14 MG PATCH.TD24 TD SCH (09:00)
[2019-07-02] MEDS: Gabapentin 300 MG CAPSULE PO SCH ×2 (09:02→22:25)
[2019-07-02] MEDS: lisinopriL 20 MG TABLET PO SCH (09:03)
[2019-07-02] MEDS: Folic Acid 1 MG TABLET PO SCH (09:04)
[2019-07-02] MEDS ORDERED: Isovue-370 500 ML BOTTLE IVP ONE (15:00)
[2019-07-02] MEDS ORDERED: 0.9 % Sodium Chloride 500 ML IVC SCH (15:15)
[2019-07-02] MEDS: cefTRIAXone 1,000 MG in Water for inj. (sterile) 10 ML IVP SCH (18:07)
[2019-07-02] MEDS: Azithromycin 500 MG in 0.9 % Sodium Chloride 250 ML IVPB SCH (18:07)
[2019-07-02] MEDS: Ipratropium/Albuterol Neb 3 ML IH SCH ×2 (20:05→21:32)
[2019-07-03] MEDS: Ipratropium/Albuterol Neb 3 ML IH SCH ×4 (03:43→21:58)
[2019-07-03] MEDS: *HR* OxyCODONE/APAP 7.5/325 TABLET PO PRN ×3 (03:56→18:03)
[2019-07-03] MEDS: *HR* Heparin 5,000 UNIT/ML VIAL SQ SCH (06:18)
[2019-07-03] MEDS: lisinopriL 20 MG TABLET PO SCH (07:24)
[2019-07-03] MEDS: Folic Acid 1 MG TABLET PO SCH (07:24)
[2019-07-03] MEDS: Nicotine 14 MG PATCH.TD24 TD SCH (07:25)
[2019-07-03] MEDS: Gabapentin 300 MG CAPSULE PO SCH ×2 (07:25→19:58)
[2019-07-03] MEDS: Acetaminophen 325 MG TABLET PO PRN ×2 (07:27→15:17)
[2019-07-03] MEDS: Simethicone 80 MG TAB.CHEW PO PRN (12:02)
[2019-07-03] MEDS: Aspirin 81 MG TAB.CHEW PO SCH (12:53)
[2019-07-03] MEDS: Azithromycin 500 MG in 0.9 % Sodium Chloride 250 ML IVPB SCH (16:53)
[2019-07-03] MEDS: cefTRIAXone 1,000 MG in Water for inj. (sterile) 10 ML IVP SCH (16:54)
[2019-07-03 17:19] LABS: Phenytoin (Dilantin) Free 1.5 ug/mL (1.0-2.5)
[2019-07-03 20:13] LABS: Bilirubin,Urine Negative (Negative); Blood,Urine Negative (Negative); Clarity,Urine Clear (Clear); Color,Urine Yellow (Yellow); Glucose,Urine (UA) Normal (Normal); Ketones,Urine Negative (Negative); Leukocyte Esterase,Urine Negative (Negative); Nitrite,Urine Negative (Negative); PH,Urine 7.5 pH Units (5.0-8.0); Protein,Urine Negative (Neg-Trace); Urobilinogen,Urine Normal (Normal)
[2019-07-04] MEDS: *HR* OxyCODONE/APAP 7.5/325 TABLET PO PRN ×4 (00:32→22:06)
[2019-07-04] MEDS: Ipratropium/Albuterol Neb 3 ML IH SCH ×4 (04:28→21:50)
[2019-07-04 06:19] LABS: Basophils % 0.3 %; Eosinophils # 0.1 K/mcL (0.0-0.6); Eosinophils % 1.3 %; Hematocrit 27.9 % (35.3-44.9); Hemoglobin 9.1 g/dL (11.5-15.4); Immature Granulocytes % 0.9 % (0-4); Lymphocytes # 0.6 K/mcL (0.6-4.6); Lymphocytes % 8.9 %; Mean Corpuscular HGB Conc 32.6 g/dL (31.6-35.5); Mean Corpuscular Hemoglobin 30.3 pg (28.0-33.3); Monocytes # 0.7 K/mcL (0.0-1.3); Monocytes % 11.3 %; Neutrophils # 4.9 K/mcL (1.6-8.9); Platelet Count 294 K/mcL (140-400); Red Cell Distribution Width 14.8 % (11.5-14.5); Segmented Neutrophils % 77.3 %; White Blood Count 6.4 K/mcL (4.3-11.1)
[2019-07-04 06:37] LABS: BUN/Creatinine Ratio 21 (6-26); Blood Urea Nitrogen 6 mg/dL (8-23); Calcium 8.1 mg/dL (8.6-10.3); Carbon Dioxide 33 mEq/L (23-29); Chloride 98 mEq/L (98-107); Glucose 88 mg/dL (70-105); Osmolality,Calculated 275 (280-300); Potassium 3.7 mEq/L (3.5-5.1); Sodium 134 mEq/L (136-145); eGFR For African Americans > 60 (> 60); eGFR For Non-African Americans > 60 (> 60)
[2019-07-04] MEDS: Nicotine 14 MG PATCH.TD24 TD SCH (07:54)
[2019-07-04] MEDS: Aspirin 81 MG TAB.CHEW PO SCH (07:54)
[2019-07-04] MEDS: Gabapentin 300 MG CAPSULE PO SCH ×2 (08:00→19:36)
[2019-07-04] MEDS: lisinopriL 20 MG TABLET PO SCH (08:00)
[2019-07-04] MEDS: Folic Acid 1 MG TABLET PO SCH (08:01)
[2019-07-04 11:06] LABS: Phenytoin Percent Free 14.3 % (8.0-14.0)
[2019-07-04] MEDS: Acetaminophen 325 MG TABLET PO PRN ×2 (13:39→19:41)
[2019-07-04] MEDS: tiZANidine 4 MG TABLET PO PRN (18:29)
[2019-07-04] MEDS: Azithromycin 500 MG in 0.9 % Sodium Chloride 250 ML IVPB SCH (18:30)
[2019-07-04] MEDS: cefTRIAXone 1,000 MG in Water for inj. (sterile) 10 ML IVP SCH (18:31)
[2019-07-05] MEDS: Ipratropium/Albuterol Neb 3 ML IH SCH ×4 (03:55→22:46)
[2019-07-05] MEDS: *HR* OxyCODONE/APAP 7.5/325 TABLET PO PRN ×4 (05:27→23:56)
[2019-07-05] MEDS: Gabapentin 300 MG CAPSULE PO SCH ×2 (07:36→19:30)
[2019-07-05] MEDS: Acetaminophen 325 MG TABLET PO PRN ×3 (07:36→20:47)
[2019-07-05] MEDS: Folic Acid 1 MG TABLET PO SCH (07:37)
[2019-07-05] MEDS: Aspirin 81 MG TAB.CHEW PO SCH (07:37)
[2019-07-05] MEDS: lisinopriL 20 MG TABLET PO SCH (07:37)
[2019-07-05] MEDS: Nicotine 14 MG PATCH.TD24 TD SCH (07:38)
[2019-07-05] MEDS: cefTRIAXone 1,000 MG in Water for inj. (sterile) 10 ML IVP SCH (17:17)
[2019-07-05] MEDS: Azithromycin 500 MG in 0.9 % Sodium Chloride 250 ML IVPB SCH (17:22)
[2019-07-06] MEDS: Acetaminophen 325 MG TABLET PO PRN ×2 (02:49→09:10)
[2019-07-06] MEDS: Ipratropium/Albuterol Neb 3 ML IH SCH ×3 (04:28→15:05)
[2019-07-06] MEDS: *HR* OxyCODONE/APAP 7.5/325 TABLET PO PRN ×2 (06:20→13:08)
[2019-07-06 07:36] VITALS: BP 156/87
[2019-07-06] MEDS: Folic Acid 1 MG TABLET PO SCH (09:10)
[2019-07-06] MEDS: Gabapentin 300 MG CAPSULE PO SCH (09:11)
[2019-07-06] MEDS: lisinopriL 20 MG TABLET PO SCH (09:11)
[2019-07-06] MEDS: Nicotine 14 MG PATCH.TD24 TD SCH (09:11)
[2019-07-06] MEDS: Aspirin 81 MG TAB.CHEW PO SCH (09:11)
[2019-07-06] MEDS: tiZANidine 4 MG TABLET PO PRN (16:16)
[2019-07-06] MEDS ORDERED: Azithromycin 250 MG TABLET PO SCH (17:00)
== END 2019-07-06 16:45 | disposition home health service (06) | DRG 480 ==
LOC: 3NENU → SUATTDRO 17:59
PROVIDERS: ADMIT Internal Medicine; ATTEND Internal Medicine